=== PATIENT | female | born 1950 | race Caucasian/White ===

== ENCOUNTER → 2018-07-12 | Outpatient (CLI) | payer MEDICARE ==
--- NOTE | 2018-07-12 14:48 | US ---
EXAMINATION TYPE: US kidneys/renal and bladder DATE OF EXAM: 07/12/2018 COMPARISON: CT abdomen and pelvis 2011. CLINICAL HISTORY: R10.10 Upper Abd Pain. EXAM MEASUREMENTS: Right Kidney: 10.7 x 3.9 x 4.6 cm Left Kidney: 9.5 x 4.7 x 4.3 cm Post Void Residual Volume: no evident post void residual Right Kidney: echogenic foci noted, ?shadowing, possible nonobstructing stone measuring 0.4 x 0.3 x 0 .4cm Left Kidney: No hydronephrosis or masses seen Bladder: wnl There is no evidence for hydronephrosis at this point in time. No nephrolithiasis is seen. No bhavna s are identified. The urinary bladder is anechoic. Bilateral ureteral jets are not seen. IMPRESSION: Cannot exclude new 4 mm nonobstructing calculus mid pole level right kidney. No hydronephrosis is not ed bilaterally.
== END | disposition home or self-care (01) ==
LOC: RADUSWWP 13:58
PROVIDERS: ATTEND Family Medicine
DX: R10.10 Upper abdominal pain, unspecified (principal)
CPT/HCPCS: 76770

== ENCOUNTER → 2018-09-19 | Outpatient (CLI) | payer MEDICARE ==
--- NOTE | 2018-09-19 15:36 | CT ---
EXAMINATION TYPE: CT brain wo con DATE OF EXAM: 09/19/2018 HISTORY: dizziness CT DLP: 1072.3 mGycm. Automated Exposure Control for Dose Reduction was Utilized. TECHNIQUE: CT scan of the head is performed without contrast. COMPARISON: None. FINDINGS: There is no acute intracranial hemorrhage or midline shift identified. There is diffuse v entricular and sulcal prominence consistent with diffuse age-related cerebral atrophy. Hoff-white mat ter differentiation is fairly well-maintained. The globes are intact and the surgically treated para nasal sinuses are clear. Vascular consultation distal internal carotid arteries bilaterally is inci dentally seen. Visualized mastoid air cells show no suspicious opacification. IMPRESSION: No acute intracranial hemorrhage or midline shift. There is mild diffuse age-related ce rebral atrophy noted.
== END | disposition home or self-care (01) ==
LOC: RADCTMAIN 15:00
PROVIDERS: ATTEND Family Medicine
DX: G31.1 Senile degeneration of brain, not elsewhere classified (principal)
CPT/HCPCS: 70450

== ENCOUNTER 2019-06-09 14:18 | Observation (INO) | payer MEDICARE ==
[2019-06-09] MEDS ORDERED: NITROGLYCERIN OINT 1 INCH/GM PACKET TOPICAL STA (14:52)
[2019-06-09 15:12] LABS: Basophils # (A) 0.1 k/uL (0-0.2); Basophils % (A) 1 %; Eosinophils # (A) 0.2 k/uL (0-0.7); Eosinophils % (A) 2 %; HCT 41.7 % (34.0-46.0); HGB 14.3 gm/dL (11.4-16.0); Lymphocytes # (A) 1.9 k/uL (1.0-4.8); Lymphocytes % (A) 20 %; MCH 32.8 pg (25.0-35.0); MCHC 34.2 g/dL (31.0-37.0); MCV 95.7 fL (80.0-100.0); Mean Platelet Volume 7.1; Monocytes # (A) 0.8 k/uL (0-1.0); Monocytes % (A) 8 %; Neutrophils # (A) 6.2 k/uL (1.3-7.7); Neutrophils % (A) 65 %; Platelet Count 227 k/uL (150-450); RBC 4.35 m/uL (3.80-5.40); RDW 12.9 % (11.5-15.5); WBC 9.6 k/uL (3.8-10.6)
--- NOTE | 2019-06-09 15:19 | ED ---
General Adult HPI - General Chief complaint: Chest Pain Stated complaint: CHEST PAIN Time Seen by Provider: 06/09/19 14:25 Source: patient, EMS, RN notes reviewed Mode of arrival: EMS Limitations: no limitations - History of Present Illness Initial comments: This is a 68-year-old female presents emergency department stating that she's had states she's had chest pain which started about noon. Patient states she took 2 nitroglycerin it only helped a little. Patient states he took aspirin and then it got considerably worse she became short of breath lightheaded to the point she thought she might pass out and became very diaphoretic. EMS arrived they gave her more aspirin and in route all of her symptoms subsided. Patient states she had a stress test about a week ago and as far she knows it was okay. Patient denies any recent fever chills or cough. Patient denies any abdominal pain. Patient denies nausea vomiting. He denies any leg swelling or calf tenderness. Patient currently is asymptomatic. - Related Data Home Medications Medication Instructions Recorded Confirmed Atorvastatin [Lipitor] 20 mg PO HS 05/17/14 06/09/19 Omeprazole [PriLOSEC] 20 mg PO BID 05/17/14 06/09/19 Oxybutynin Chloride [Ditropan XL] 10 mg PO HS 05/17/14 06/09/19 Atenolol 25 mg PO HS 01/27/16 06/09/19 Isosorbide Mononitrate [Isosorbide 30 mg PO QA 01/27/16 06/09/19 Mononitrate ER] Ranitidine HCl [Zantac] 300 mg PO HS 01/27/16 06/09/19 Aspirin 81 mg PO DAILY 10/20/16 06/09/19 Gabapentin 600 mg PO HS 06/09/19 06/09/19 Losartan-Hctz 50-12.5 mg [Hyzaar 1 tab PO DAILY 06/09/19 06/09/19 50-12.5] diphenhydrAMINE HCL [Benadryl] 75 mg PO HS 06/09/19 06/09/19 Allergies Allergy/AdvReac Type Severity Reaction Status Date / Time Iodinated Contrast- Oral and Allergy Anaphylaxis Verified 06/09/19 15:13 IV Dye [Iodinated Contrast Media - IV Dye] tramadol HCl [From Ultram] Allergy Itching Verified 06/09/19 15:13 Review of Systems ROS Statement: Those systems with pertinent positive or pertinent negative responses have been documented in the HPI. ROS Other: All systems not noted in ROS Statement are negative. Past Medical History Past Medical History: Asthma, CVA/TIA, GERD/Reflux, Hyperlipidemia, Hypertension, Mitral Valve Prolapse (MVP) Additional Past Medical History / Comment(s): states "feels like has spasm when swallowing-does not happen freq"and harsh barking non-productive cough at night,Steroids Aug/Sep 2016,rash-yeast infection abdomen,Hx TIS-no residual,heart murmur; IBS w/some periods of "passing blood",degenerative disc disease,spurs,arthritis to back. History of Any Multi-Drug Resistant Organisms: None Reported Past Surgical History: Adenoidectomy, Appendectomy, Heart Catheterization, Hysterectomy, Tonsillectomy Additional Past Surgical History / Comment(s): cervical fusion C4-C5 with screws and pins in place, bilateral blepharoplasty (eye lid sx); left breast biopsies last one in 1994 Past Anesthesia/Blood Transfusion Reactions: Family History of Problems w/ Anesthesia, Motion Sickness Additional Past Anesthesia/Blood Transfusion Reaction / Comment(s): "wake up slowly from anesthsia",dtr has hard time waking up from anesthesia.No hx blood transfusion. Past Psychological History: No Psychological Hx Reported Smoking Status: Current some day smoker Past Alcohol Use History: None Reported Past Drug Use History: None Reported - Past Family History Mother Family Medical History: No Reported History Additional Family Medical History / Comment(s): at age 42 Father Additional Family Medical History / Comment(s): "bad heart valve" General Exam - General Exam Comments Initial Comments: GENERAL: Patient is well-developed and well-nourished. Patient is nontoxic and well- hydrated and is in no acute distress. ENT: Neck is soft and supple. No significant lymphadenopathy is noted. Oropharynx is clear. Moist mucous membranes. Neck has full range of motion without eliciting any pain. EYES: The sclera were anicteric and conjunctiva were pink and moist. Extraocular movements were intact and pupils were equal round and reactive to light. Eyelids were unremarkable. PULMONARY: Unlabored respirations. Good breath sounds bilaterally. No audible rales rhonchi or wheezing was noted. CARDIOVASCULAR: There is a regular rate and rhythm without any murmurs gallops or rubs. ABDOMEN: Soft and nontender with normal bowel sounds. No palpable organomegaly was noted. There is no palpable pulsatile mass. SKIN: Skin is clear with no lesions or rashes and otherwise unremarkable. NEUROLOGIC: Patient is alert and oriented x3. Cranial nerves II through XII are grossly intact. Motor and sensory are also intact. Normal speech, volume and content. Symmetrical smile. MUSCULOSKELETAL: Normal extremities with adequate strength and full range of motion. LYMPHATICS: No significant lymphadenopathy is noted PSYCHIATRIC: Normal psychiatric evaluation. Limitations: no limitations Course Vital Signs 06/09/19 06/09/19 14:24 15:35 Temperature 97.6 F Pulse Rate 66 57 L Respiratory 18 18 Rate Blood Pressure 159/73 147/97 O2 Sat by Pulse 97 97 Oximetry Medical Decision Making - Medical Decision Making EKG shows normal sinus rhythm at 60 bpm TX interval is 122 QRS is 82 QT interval 412 QTC is 412. Patient's EKG shows no ST segment elevation or depression or T wave abnormalities are noted. Chest x-ray shows no acute abnormality. Patient has been chest pain free throughout her duration. I spoke with Dr. Saba he agreed to admit the patient admitted the patient I wrote admitting orders. I continued heparin and aspirin and Nitropaste on the floor. - Lab Data Result diagrams: 06/09/19 15:02 06/09/19 15:02 Lab Results 06/09/19 06/09/19 06/09/19 Range/Units 15:02 15:02 15:02 WBC 9.6 (3.8-10.6) k/uL RBC 4.35 (3.80-5.40) m/uL Hgb 14.3 (11.4-16.0) gm/dL Hct 41.7 (34.0-46.0) % MCV 95.7 (80.0-100.0) fL MCH 32.8 (25.0-35.0) pg MCHC 34.2 (31.0-37.0) g/dL RDW 12.9 (11.5-15.5) % Plt Count 227 (150-450) k/uL Neutrophils % 65 % Lymphocytes % 20 % Monocytes % 8 % Eosinophils % 2 % Basophils % 1 % Neutrophils # 6.2 (1.3-7.7) k/uL Lymphocytes # 1.9 (1.0-4.8) k/uL Monocytes # 0.8 (0-1.0) k/uL Eosinophils # 0.2 (0-0.7) k/uL Basophils # 0.1 (0-0.2) k/uL PT 9.8 (9.0-12.0) sec INR 0.9 (<1.2) APTT 23.5 (22.0-30.0) sec Sodium 138 (137-145) mmol/L Potassium 3.8 (3.5-5.1) mmol/L Chloride 102 (98-107) mmol/L Carbon Dioxide 29 (22-30) mmol/L Anion Gap 7 mmol/L BUN 16 (7-17) mg/dL Creatinine 0.66 (0.52-1.04) mg/dL Est GFR (CKD-EPI)AfAm >90 (>60 ml/min/1.73 sqM) Est GFR (CKD-EPI)NonAf 90 (>60 ml/min/1.73 sqM) Glucose 100 H (74-99) mg/dL Calcium 9.2 (8.4-10.2) mg/dL Magnesium 1.9 (1.6-2.3) mg/dL Total Bilirubin 0.5 (0.2-1.3) mg/dL AST 22 (14-36) U/L ALT 29 (9-52) U/L Alkaline Phosphatase 57 (38-126) U/L Troponin I (0.000-0.034) ng/mL Total Protein 6.2 L (6.3-8.2) g/dL Albumin 3.9 (3.5-5.0) g/dL 06/09/19 Range/Units 15:02 WBC (3.8-10.6) k/uL RBC (3.80-5.40) m/uL Hgb (11.4-16.0) gm/dL Hct (34.0-46.0) % MCV (80.0-100.0) fL MCH (25.0-35.0) pg MCHC (31.0-37.0) g/dL RDW (11.5-15.5) % Plt Count (150-450) k/uL Neutrophils % % Lymphocytes % % Monocytes % % Eosinophils % % Basophils % % Neutrophils # (1.3-7.7) k/uL Lymphocytes # (1.0-4.8) k/uL Monocytes # (0-1.0) k/uL Eosinophils # (0-0.7) k/uL Basophils # (0-0.2) k/uL PT (9.0-12.0) sec INR (<1.2) APTT (22.0-30.0) sec Sodium (137-145) mmol/L Potassium (3.5-5.1) mmol/L Chloride (98-107) mmol/L Carbon Dioxide (22-30) mmol/L Anion Gap mmol/L BUN (7-17) mg/dL Creatinine (0.52-1.04) mg/dL Est GFR (CKD-EPI)AfAm (>60 ml/min/1.73 sqM) Est GFR (CKD-EPI)NonAf (>60 ml/min/1.73 sqM) Glucose (74-99) mg/dL Calcium (8.4-10.2) mg/dL Magnesium (1.6-2.3) mg/dL Total Bilirubin (0.2-1.3) mg/dL AST (14-36) U/L ALT (9-52) U/L Alkaline Phosphatase (38-126) U/L Troponin I <0.012 (0.000-0.034) ng/mL Total Protein (6.3-8.2) g/dL Albumin (3.5-5.0) g/dL Disposition Clinical Impression: Unstable angina pectoris Disposition: ADMITTED IP TO THIS HOSP Referrals: Lashell Price MD [Primary Care Provider] - 1-2 days Time of Disposition: 16:23
[2019-06-09 15:21] LABS: ALT 29 U/L (9-52); AST 22 U/L (14-36); African American GFR (CKD) >90 (>60 ml/min/1.73 sqM); Albumin 3.9 g/dL (3.5-5.0); Alkaline Phosphatase 57 U/L (38-126); Anion Gap 7 mmol/L; Blood Urea Nitrogen 16 mg/dL (7-17); Calcium 9.2 mg/dL (8.4-10.2); Carbon Dioxide 29 mmol/L (22-30); Chloride 102 mmol/L (98-107); Glucose 100 mg/dL (74-99); Magnesium 1.9 mg/dL (1.6-2.3); Non-African American GFR(CKD) 90 (>60 ml/min/1.73 sqM); Potassium 3.8 mmol/L (3.5-5.1); Sodium 138 mmol/L (137-145); Total Bilirubin 0.5 mg/dL (0.2-1.3); Total Protein 6.2 g/dL (6.3-8.2)
--- NOTE | 2019-06-09 15:30 | XR ---
EXAMINATION TYPE: XR chest 2V DATE OF EXAM: 06/09/2019 COMPARISON: 09/01/2015 HISTORY: Chest pain TECHNIQUE: Frontal and lateral views of the chest are obtained. FINDINGS: There is no focal air space opacity, pleural effusion, or pneumothorax seen. Eventration o f the hemidiaphragms are seen. Flattening of the diaphragms on the lateral view suggests underlying COPD. The cardiac silhouette size is within normal limits. Prominent epicardial fat pad is unchange d from the prior at the right cardiophrenic border. The osseous structures are intact. Minimal degene rative changes of the thoracic spine are noted. Surgical changes of the cervical spine are noted. IMPRESSION: Chronic changes with no acute cardiopulmonary process.
[2019-06-09 15:32] LABS: INR 0.9 (<1.2); Partial Thromboplastin Time 23.5 sec (22.0-30.0); Prothrombin Time 9.8 sec (9.0-12.0)
[2019-06-09] MEDS ORDERED: HEPARIN SODIUM,PORCINE 5,000 UNIT/ML 1 ML VIAL IV ONE (16:22)
[2019-06-09] MEDS ORDERED: NITROGLYCERIN SL TABS 0.4 MG TAB SUBLINGUAL PRN (16:24)
[2019-06-09] MEDS ORDERED: HEPARIN SOD,PORK IN 0.45% NACL 25,000 UNIT in 0.45% NACL 1 250ML.BAG IV SCH (16:30)
[2019-06-09] MEDS: NITROGLYCERIN OINT 1 INCH/GM PACKET TOPICAL SCH ×2 (20:10→23:40)
[2019-06-09] MEDS ORDERED: TEMAZEPAM 15 MG CAP PO PRN (20:30)
[2019-06-09] MEDS ORDERED: ALPRAZolam 0.25 MG TAB PO PRN (20:30)
[2019-06-09] MEDS ORDERED: diphenhydrAMINE 25 MG CAP PO SCH (21:00)
[2019-06-09] MEDS ORDERED: FAMOTIDINE 20 MG TAB PO SCH (21:00)
[2019-06-09] MEDS ORDERED: ATENOLOL 25 MG TAB PO SCH (21:00)
[2019-06-09] MEDS ORDERED: OXYBUTYNIN 10 MG TAB.ER.24 PO SCH (21:00)
[2019-06-09] MEDS ORDERED: NON FORMULARY DRUG (Omeprazole [Prilosec] 20 MG) PO SCH (21:00)
[2019-06-09] MEDS ORDERED: ATORVASTATIN 20 MG TAB PO SCH (21:00)
[2019-06-09] MEDS ORDERED: GABAPENTIN 300 MG CAP PO SCH (21:00)
[2019-06-09] MEDS ORDERED: HEPARIN SODIUM,PORCINE 5,000 UNIT/ML 1 ML VIAL IV PRN (22:15)
--- NOTE | 2019-06-10 01:49 | HP ---
HISTORY AND PHYSICAL DATE OF SERVICE: 06/09/2019 CHIEF COMPLAINT: Chest pain. HISTORY OF PRESENT ILLNESS: This 68-year-old woman with a past medical history of multiple medical problems being followed by Dr. Lashell Price in the outpatient setting had past medical history of asthma, CVA, TIA, GERD, hypertension, hyperlipidemia, mitral prolapse. The patient also following Cardiology on a regular basis. Currently the patient is complaining of chest discomfort in the anterior part of the chest and the patient took 2 nitros, which only helped slightly and the pain is radiating to the right neck as similar to the patient's previous anginal attack. Apparently subsequently patient had presyncopal episodes and feeling dizzy and the patient was feeling weak and diaphoretic and patient came to [facility] emergency room via EMS and patient admitted to the hospital for further evaluation and treatment. There is no history of fever, rigors or chills. No history of headache, loss of consciousness or seizures. EKG showed normal sinus rhythm, heart rate 60 and no acute changes. PAST MEDICAL HISTORY: History of asthma, history of GERD, hypertension, hyperlipidemia, mitral valve prolapse. MEDICATIONS: Prior to admission include home medications are: 1. Benadryl 75 mg p.o. q.h.s. 2. Ditropan XL 10 mg q.h.s. 3. Gabapentin 600 mg q.h.s. 4. Zantac 300 mg q.h.s. 5. Prilosec 20 mg p.o. b.i.d. 6. advair 50/12.5 mg p.o. daily. 7. Isosorbide mononitrate 30 mg p.o. q.h.s. 8. Lipitor 20 mg q.h.s. 9. Metoprolol 25 mg q.h.s. 10.Aspirin 81 mg p.o. daily. ALLERGIES: IODINATED CONTRAST DYES and ULTRAM. FAMILY HISTORY: Family history unknown. SOCIAL HISTORY: History of smoking, continued ongoing. REVIEW OF SYSTEMS: ENT: No diminished hearing. No diminished vision. CARDIOVASCULAR as mentioned earlier. RESPIRATORY: As mentioned earlier. GI no nausea or vomiting. no dysuria. CENTRAL NERVOUS SYSTEM: No numbness or weakness. ALLERGY/IMMUNOLOGY: No asthma or hayfever. MUSCULOSKELETAL: As mentioned earlier. HEMATOLOGY/ONCOLOGY: No history of anemia. ENDOCRINE: No history of diabetes or hypothyroid. CONSTITUTIONAL: As mentioned earlier. DERMATOLOGY: Negative. RHEUMATOLOGY: Negative. PSYCHIATRY: As mentioned earlier. PHYSICAL EXAMINATION: Alert and oriented times three. Pulse 57, blood pressure 147/96, respiration 18, temperature 97.6, pulse ox 97% on room air. HEENT: Conjunctivae normal. Oral mucosa moist. NECK is no jugular venous distention. No carotid bruit. No lymph node enlargement. CARDIOVASCULAR: S1, S2 muffled. No S3, no S4. RESPIRATORY: Breath sounds diminished in the bases. No rhonchi. No crackles. ABDOMEN: Soft, nontender. No mass palpable. LEGS: No edema. No swelling. NERVOUS SYSTEM: Higher functions as mentioned earlier. Moves all four limbs. No focal deficits. LYMPHATICS: No lymph nodes palpable in the neck, axillae or groin. SKIN: No ulcers. No rashes. No bleeding. JOINTS: No active deforming arthropathy. LABS: At this time shows CBC within normal limits. Glucose 100 and total protein 6. ASSESSMENT: 1. Chest pain possible unstable angina. 2. Dizziness. 3. Presyncope, possibly orthostatic hypotension. 4. History of asthma. 5. History cerebrovascular accident/transient ischemic attack. 6. Gastroesophageal reflux disease. 7. Hypertension. 8. Hyperlipidemia. 9. History of mitral valve prolapse. 10.History of irritable bowel syndrome. 11.History of cardiac catheterization. 12.History of cervical fusion, degenerative joint disease. 13.History of nicotine dependence, continued ongoing. 14.Obesity body mass of 33.5. RECOMMENDATIONS AND DISCUSSION: This 68-year-old woman with multiple complex medical issues, we will monitor the patient closely, continue the current medications, management and rule out myocardial infarction. Unstable angina protocol. Resume the home medications. Follow closely with cardiology. We will check orthostatic vitals. Guarded prognosis because of multiple complex medical issues. Further recommendations to follow. A copy of dictation being forwarded to Dr. Lashell Price who is the primary physician. MMMONIQUEL / DINORAHN: [id number] / SNEHA
[2019-06-10 06:31] LABS: Basophils % (A) 1 %; Eosinophils # (A) 0.3 k/uL (0-0.7); Eosinophils % (A) 4 %; HCT 37.7 % (34.0-46.0); HGB 12.9 gm/dL (11.4-16.0); Lymphocytes # (A) 2.3 k/uL (1.0-4.8); Lymphocytes % (A) 33 %; MCH 32.9 pg (25.0-35.0); MCHC 34.2 g/dL (31.0-37.0); MCV 96.1 fL (80.0-100.0); Mean Platelet Volume 8.2; Monocytes # (A) 0.6 k/uL (0-1.0); Monocytes % (A) 9 %; Neutrophils # (A) 3.6 k/uL (1.3-7.7); Neutrophils % (A) 51 %; Platelet Count 251 k/uL (150-450); RBC 3.93 m/uL (3.80-5.40); RDW 14.4 % (11.5-15.5); WBC 7.1 k/uL (3.8-10.6)
[2019-06-10 06:49] LABS: African American GFR (CKD) >90 (>60 ml/min/1.73 sqM); Anion Gap 6 mmol/L; Blood Urea Nitrogen 14 mg/dL (7-17); Calcium 8.9 mg/dL (8.4-10.2); Carbon Dioxide 27 mmol/L (22-30); Chloride 108 mmol/L (98-107); Cholesterol 148 mg/dL (<200); Glucose 87 mg/dL (74-99); HDL Cholesterol 37 mg/dL (40-60); LDL Cholesterol,Calculated 70 mg/dL (0-99); Non-African American GFR(CKD) 89 (>60 ml/min/1.73 sqM); Potassium 3.8 mmol/L (3.5-5.1); Sodium 141 mmol/L (137-145); Triglycerides 206 mg/dL (<150)
[2019-06-10] MEDS: NITROGLYCERIN OINT 1 INCH/GM PACKET TOPICAL SCH (06:52)
[2019-06-10] MEDS ORDERED: PANTOPRAZOLE 40 MG TABLET PO SCH (07:30)
[2019-06-10 08:14] VITALS: BP 136/79; PULSE 57; RESP 16; TEMP 98.1
[2019-06-10] MEDS ORDERED: OXYBUTYNIN 10 MG TAB.ER.24 PO SCH (09:00)
[2019-06-10] MEDS ORDERED: LOSARTAN-HCTZ 50-12.5 MG 1 EACH TAB PO SCH (09:00)
[2019-06-10] MEDS ORDERED: ASPIRIN 325 MG TAB PO SCH (09:00)
--- NOTE | 2019-06-10 09:20 | CONS ---
CONSULTATION This is a 68-year-old lady with a history of hypertension and smoking and hyperlipidemia who sees Dr. Mooney in the outpatient setting. May 23, she had a Lexiscan stress test which I reviewed today and it was completely normal. There is no ischemia. Ejection fraction is more than 60%. She came into the hospital with an episode of what she described as a sharp pain in her chest, started about noon on and off. Quality of the pain was atypical. She took 2 sublingual nitroglycerin, did not really have much relief. Then she became dizzy, lightheaded and had a sensation of passing out and came into the hospital. Her 3 sets of troponins are normal. She is resting comfortably. No further chest pain. EKG is unremarkable. It appears her pain was atypical and after sublingual nitroglycerin, she felt lightheaded, probably secondary to the medication. She is virtually asymptomatic at this time and her stress test 2 weeks ago was normal. PAST MEDICAL HISTORY: 1. Hypertension. 2. Hyperlipidemia. 3. Gastroesophageal reflux disease. 4. Recent negative Lexiscan stress test. ALLERGIES: SHE IS ALLERGIC TO IODINE AND TRAMADOL. MEDICATIONS: Include aspirin 81 mg daily, losartan, diphenhydramine, ranitidine, Imdur, omeprazole and Lipitor, atenolol 25 mg daily. PHYSICAL EXAMINATION: Blood pressure is 120/70, pulse rate is 60 per minute, regular. HEENT unremarkable. Fundus was not examined by me. Neck is supple. No JVD. I do not hear a carotid bruit. There is no thyromegaly. Heart exam reveals S1, S2 heard normally without a rub, murmur or gallop. Lungs are clear. Abdomen is soft, nontender. Lower extremities reveal normal pulses. No edema. Central nervous system is normal. EKG revealed sinus rhythm, no acute changes. IMPRESSION: 1. Atypical chest pain with a normal stress test 2 weeks ago, Lexiscan stress test in the office. 2. Hypertension. 3. Hyperlipidemia. 4. History of smoking. RECOMMENDATION: This patient can be discharged home. Her pain is atypical. Recent stress test is negative. D-dimer is unremarkable. I have counselled her regarding the need to quit smoking. She should not be taking isosorbide mononitrate either. That can be discontinued and she can be discharged and see Dr. Mooney in the office. MMODL / IJN: [id number] /
--- NOTE | 2019-06-11 09:08 | DS ---
DISCHARGE SUMMARY DATE OF SERVICE: 06/10/2019. FINAL DIAGNOSES: 1. Chest pain, myocardial infarction ruled out. 2. Recent negative stress test. 3. Dizziness and presyncope, possible orthostatic hypotension. 4. History of asthma. 5. History of cerebrovascular accident, transient ischemic attack. 6. Gastroesophageal reflux disease. 7. Hypertension. 8. Hyperlipidemia. 9. History of mitral valve prolapse. 10.History of irritable bowel syndrome. 11.History of cardiac catheterization. 12.History of cervical fusion, degenerative joint disease. 13.History of nicotine dependence, continued ongoing. 14.Obesity with body mass index 33.5. DISCHARGE DISPOSITION: The patient will be discharged in stable condition with guarded prognosis. HISTORY OF PRESENT ILLNESS: This 68-year-old woman with past medical history of multiple medical problems being followed by Dr. Lashell Price as well as Dr. Mooney in the outpatient setting, presented with chest pain. Myocardial infarction ruled out. Cardiology saw the patient. Cleared the patient for discharge. On exam, vitals signs are stable. Cardiovascular: S1, S2 muffled. Abdomen soft. Nervous System: No focal deficits. Please note, patient recently had a stress test as an outpatient with Dr. Mooney. The blood pressure was improved at this time. DISCHARGE ADVICE AND MEDICATIONS: 1. Diet is cardiac diet. 2. Activity limited until followup. 3. Follow up with Dr. Lashell Price in 2-3 days. 4. Follow up with Cardiology as recommended. DISCHARGE MEDICATIONS: 1. Ecotrin 81 mg p.o. daily. 2. Atenolol 25 mg q.h.s. 3. Benadryl 75 mg p.o. q.h.s. 4. Ditropan XL 10 mg p.o. daily. 5. Gabapentin 600 mg q.h.s. 6. Hyzaar 50/12.5 mg p.o. daily. 7. Imdur 30 mg q.a.m. 8. Lipitor 20 mg q.h.s. 9. Prilosec 20 mg p.o. b.i.d. 10.Nitrostat 0.4 mg sublingual p.r.n. Once again, the patient will be discharged in stable condition with guarded prognosis. MMODL / IJN: [id number] /
== END 2019-06-10 11:50 | disposition home or self-care (01) ==
LOC: EC 14:18 → 1SOBS 16:24
PROVIDERS: ADMIT Hospitalist; ATTEND Hospitalist
DX: R07.89 Other chest pain (principal); R42 Dizziness and giddiness; R55 Syncope and collapse; R53.1 Weakness; R61 Generalized hyperhidrosis; J45.909 Unspecified asthma, uncomplicated; K21.9 Gastro-esophageal reflux disease without esophagitis; I10 Essential (primary) hypertension; E78.5 Hyperlipidemia, unspecified; I34.1 Nonrheumatic mitral (valve) prolapse; E66.9 Obesity, unspecified; Z68.33 Body mass index [BMI] 33.0-33.9, adult; K58.9 Irritable bowel syndrome, unspecified; M46.90 Unspecified inflammatory spondylopathy, site unspecified; Z98.1 Arthrodesis status; Z86.73 Personal history of transient ischemic attack (TIA), and cerebral infarction without residual deficits; Z87.891 Personal history of nicotine dependence; Z79.899 Other long term (current) drug therapy; Z79.82 Long term (current) use of aspirin; Z88.5 Allergy status to narcotic agent; Z91.041 Radiographic dye allergy status
CPT/HCPCS: 96366 ×3; 96376; 96365; 99285; 36415; 93005; 85379; 80061; 80053; 80048; 83735; 84484 ×2; 85025 ×2; 85610; 85730 ×2; 71046; G0378 ×2; J1644 ×2

== ENCOUNTER → 2019-07-12 | Outpatient (CLI) | payer MEDICARE ==
[2019-07-12 12:55] LABS: HCT 45.6 % (34.0-46.0); MCH 32.1 pg (25.0-35.0); MCV 97.3 fL (80.0-100.0); Mean Platelet Volume 6.5; Platelet Count 321 k/uL (150-450); RBC 4.69 m/uL (3.80-5.40); RDW 12.5 % (11.5-15.5); WBC 9.9 k/uL (3.8-10.6)
[2019-07-12 13:07] LABS: Potassium 3.7 mmol/L (3.5-5.1)
== END | disposition home or self-care (01) ==
LOC: LABPAT 12:22
PROVIDERS: ATTEND Internal Medicine Cardiovascular Disease
DX: Z01.812 Encounter for preprocedural laboratory examination (principal); I20.8 Other forms of angina pectoris
CPT/HCPCS: 80051; 82565; 84520; 85027

== ENCOUNTER → 2019-07-14 | Day surgery (SDC) | payer MEDICARE ==
[2019-07-13 12:16] VITALS: BMI 32.5
[~2019-07-14] MED LIST: ALPRAZolam 0.25 MG TAB ONE; IOPAMIDOL-370 125ML BTL INJ ONE; LIDOCAINE 1% INJ 10MG/ML (20 ML MDV) ONE; LIDOCAINE 1% INJ 10MG/ML (20 ML MDV) SQ ONE; MIDAZOLAM 2 MG/2 ML VIAL IV ONE; MIDAZOLAM 2 MG/2 ML VIAL IVP ONE; RX INFO: IV CONTRAST WAS GIVEN 1 EACH MISC MISCELLANE PRN; SODIUM CHLORIDE 0.9% 1,000 ML IV ONE; SODIUM CHLORIDE 0.9% 1,000 ML IV SCH; fentaNYL (PF) 50 MCG/ML 2 ML AMP IV ONE; fentaNYL (PF) 50 MCG/ML 2 ML AMP ONE
[2019-07-14 07:40] VITALS: RESP 16
--- NOTE | 2019-07-14 10:20 | CC ---
CARDIAC CATHETERIZATION REPORT INDICATION: Unstable angina. PROCEDURE NOTE: After obtaining informed consent, left heart catheterization and coronary angiogram were performed via the right femoral artery using standard Trent catheters. Patient tolerated the procedure well without any obvious immediate complications. A femoral angiogram was performed and Angio-Seal will be deployed for hemostasis patient received moderate conscious sedation. Total sedation time was 16 minutes. FINDINGS: HEMODYNAMICS: Left ventricular end-diastolic pressure is 12-14 mm. There is no significant gradient across the aortic valve. LEFT VENTRICULOGRAM: Left ventriculogram is not performed. ANGIOGRAPHIC DATA: LEFT MAIN CORONARY ARTERY: Left main coronary artery appears calcified but is free of significant stenosis. Divides into left anterior descending coronary artery and circumflex coronary artery. Circumflex coronary artery and its branches are free of significant stenosis. LAD shows a 40%-50% stenosis in the mid LAD region. Right coronary artery is a large dominant vessel that shows a 40% stenosis in its midportion and both the LAD and the right coronary artery appears calcified. 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 PLAN: I reviewed angiographic data with the patient and told her that her management is going to be in the form of continued medical therapy. The patient is currently on aspirin, atenolol, Lipitor, losartan, and Imdur. I will double the dose of Imdur. She will follow up with me in a week's time. MMODL / IJN: [id number] /
[2019-07-14 14:42] VITALS: BP 113/56; PULSE 66; TEMP 98
== END ==
LOC: CATHCVL 07:03
PROVIDERS: ATTEND Internal Medicine Cardiovascular Disease
DX: I25.110 Atherosclerotic heart disease of native coronary artery with unstable angina pectoris (principal); I10 Essential (primary) hypertension; E78.2 Mixed hyperlipidemia; F17.290 Nicotine dependence, other tobacco product, uncomplicated; Z79.899 Other long term (current) drug therapy; Z91.048 Other nonmedicinal substance allergy status; Z88.5 Allergy status to narcotic agent; Z86.79 Personal history of other diseases of the circulatory system; Z98.890 Other specified postprocedural states; Z82.49 Family history of ischemic heart disease and other diseases of the circulatory system; I08.0 Rheumatic disorders of both mitral and aortic valves; Z91.041 Radiographic dye allergy status
CPT/HCPCS: 93458; C1760; C1894; C1769; J2250; J2001; J3010; Q9967

== ENCOUNTER 2019-07-15 14:42 | Emergency (ER) | payer MEDICARE ==
[2019-07-15 14:48] VITALS: RESP 18
[2019-07-15] MEDS ORDERED: NITROGLYCERIN OINT 1 INCH/GM PACKET TOPICAL STA (15:04)
[2019-07-15] MEDS ORDERED: ASPIRIN 81 MG PO STA (15:04)
--- NOTE | 2019-07-15 15:06 | ED ---
General Adult HPI - General Chief complaint: Chest Pain Stated complaint: Chest pain Time Seen by Provider: 07/15/19 14:56 Source: patient, RN notes reviewed Mode of arrival: wheelchair Limitations: no limitations - History of Present Illness Initial comments: Patient is a pleasant 68-year-old female presenting to the emergency Department with complaints of chest discomfort. Patient does have similar symptoms around a year ago that were improved with medications. Over the past month or 2 patient has had recurrent symptoms. Patient had worsening symptoms again several days ago and did have heart catheterization done just yesterday. Patient states this morning she has now had 4 episodes of chest discomfort. Discomfort is described as pressure. Symptoms do resolve with nitroglycerin. No associated dyspnea, nausea, or diaphoresis. Patient is currently symptom- free. Episodes are lasting up to 10 minutes. - Related Data Home Medications Medication Instructions Recorded Confirmed Atorvastatin [Lipitor] 20 mg PO DAILY 05/17/14 07/15/19 Omeprazole [PriLOSEC] 20 mg PO BID 05/17/14 07/15/19 Oxybutynin Chloride [Ditropan XL] 10 mg PO DAILY 05/17/14 07/15/19 Atenolol 25 mg PO DAILY 01/27/16 07/15/19 Isosorbide Mononitrate [Isosorbide 30 mg PO QAM 01/27/16 07/15/19 Mononitrate ER] Aspirin 81 mg PO DAILY 10/20/16 07/15/19 Gabapentin 600 mg PO DAILY 06/09/19 07/15/19 Losartan-Hctz 50-12.5 mg [Hyzaar 1 tab PO DAILY 06/09/19 07/15/19 50-12.5] diphenhydrAMINE HCL [Benadryl] 75 mg PO DAILY 06/09/19 07/15/19 Previous Rx's Medication Instructions Recorded Nitroglycerin Sl Tabs [Nitrostat] 0.4 mg SUBLINGUAL Q5M PRN #20 tab 06/10/19 Allergies Allergy/AdvReac Type Severity Reaction Status Date / Time Iodinated Contrast Media Allergy Anaphylaxis Verified 07/15/19 15:21 [Iodinated Contrast Media - IV Dye] tramadol HCl [From Ultram] Allergy Itching Verified 07/15/19 15:21 Review of Systems ROS Statement: Those systems with pertinent positive or pertinent negative responses have been documented in the HPI. ROS Other: All systems not noted in ROS Statement are negative. Constitutional: Denies: fever Eyes: Denies: eye pain ENT: Denies: ear pain Respiratory: Denies: cough, dyspnea Cardiovascular: Reports: chest pain Endocrine: Denies: fatigue Gastrointestinal: Denies: abdominal pain Genitourinary: Denies: dysuria Musculoskeletal: Denies: back pain Skin: Denies: rash Neurological: Denies: weakness Past Medical History Past Medical History: Asthma, Chest Pain / Angina, CVA/TIA, GERD/Reflux, Hyperlipidemia, Hypertension, Mitral Valve Prolapse (MVP), Osteoarthritis (OA) Additional Past Medical History / Comment(s): intermittent harsh barking non- productive cough at night,TIA-no residual,heart murmur; IBS degenerative disc disease,spurs, recent chest pain History of Any Multi-Drug Resistant Organisms: None Reported Past Surgical History: Adenoidectomy, Appendectomy, Heart Catheterization, Hysterectomy, Tonsillectomy Additional Past Surgical History / Comment(s): cervical fusion C4-C5 with screws and pins in place, bilateral blepharoplasty (eye lid sx); left breast biopsies last one in 1994, cataracts removed Past Anesthesia/Blood Transfusion Reactions: Previous Problems w/ Anesthesia, Family History of Problems w/ Anesthesia, Motion Sickness Additional Past Anesthesia/Blood Transfusion Reaction / Comment(s): "wake up slowly from anesthesia",dt has hard time waking up from anesthesia.No hx blood transfusion. Past Psychological History: No Psychological Hx Reported Smoking Status: Former smoker Past Alcohol Use History: None Reported Past Drug Use History: None Reported - Past Family History Mother Family Medical History: No Reported History Additional Family Medical History / Comment(s): at age 42 Father Additional Family Medical History / Comment(s): "bad heart valve" General Exam Limitations: no limitations General appearance: alert, in no apparent distress Head exam: Present: normocephalic Eye exam: Present: normal appearance Neck exam: Present: normal inspection Respiratory exam: Present: normal lung sounds bilaterally Cardiovascular Exam: Present: regular rate, normal rhythm Expanded Peripheral pulses: 2+: Radial (R), Radial (L), Posterior Tibialis (R), Posterior Tibialis (L), Dorsalis Pedis (R), Dorsalis Pedis (L) GI/Abdominal exam: Present: soft. Absent: tenderness Extremities exam: Present: normal inspection. 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 FL 108. QRS 84. QT 428. QTC 423. Normal axis. Normal QRS. No acute ST change. Medical Decision Making - Medical Decision Making Case discussed in detail with Dr. Ramos who does recommend increasing Imdur from 30 up to 60 mg daily. Follow-up as scheduled. He states patient can be discharged. Patient reevaluated and symptom-free. Patient and family updated. - Lab Data Result diagrams: 07/15/19 15:25 07/15/19 15:25 Lab Results 07/15/19 07/15/19 07/15/19 Range/Units 15:25 15:25 15:25 WBC 13.2 H (3.8-10.6) k/uL RBC 4.75 (3.80-5.40) m/uL Hgb 14.9 (11.4-16.0) gm/dL Hct 45.9 (34.0-46.0) % MCV 96.7 (80.0-100.0) fL MCH 31.4 (25.0-35.0) pg MCHC 32.4 (31.0-37.0) g/dL RDW 12.8 (11.5-15.5) % Plt Count 307 (150-450) k/uL Neutrophils % 52 % Lymphocytes % 33 % Monocytes % 8 % Eosinophils % 1 % Basophils % 2 % Neutrophils # 6.9 (1.3-7.7) k/uL Lymphocytes # 4.3 (1.0-4.8) k/uL Monocytes # 1.1 H (0-1.0) k/uL Eosinophils # 0.2 (0-0.7) k/uL Basophils # 0.3 H (0-0.2) k/uL PT (9.0-12.0) sec INR (<1.2) APTT (22.0-30.0) sec Sodium 137 (137-145) mmol/L Potassium 3.8 (3.5-5.1) mmol/L Chloride 100 (98-107) mmol/L Carbon Dioxide 25 (22-30) mmol/L Anion Gap 12 mmol/L BUN 17 (7-17) mg/dL Creatinine 0.74 (0.52-1.04) mg/dL Est GFR (CKD-EPI)AfAm >90 (>60 ml/min/1.73 sqM) Est GFR (CKD-EPI)NonAf 83 (>60 ml/min/1.73 sqM) Glucose 85 (74-99) mg/dL Calcium 9.6 (8.4-10.2) mg/dL Magnesium 1.7 (1.6-2.3) mg/dL Total Bilirubin 0.5 (0.2-1.3) mg/dL AST 23 (14-36) U/L ALT 24 (9-52) U/L Alkaline Phosphatase 65 (38-126) U/L Troponin I (0.000-0.034) ng/mL NT-Pro-B Natriuret Pep 355 pg/mL Total Protein 6.8 (6.3-8.2) g/dL Albumin 4.2 (3.5-5.0) g/dL Lipase 41 (23-300) U/L 07/15/19 07/15/19 Range/Units 15:25 15:25 WBC (3.8-10.6) k/uL RBC (3.80-5.40) m/uL Hgb (11.4-16.0) gm/dL Hct (34.0-46.0) % MCV (80.0-100.0) fL MCH (25.0-35.0) pg MCHC (31.0-37.0) g/dL RDW (11.5-15.5) % Plt Count (150-450) k/uL Neutrophils % % Lymphocytes % % Monocytes % % Eosinophils % % Basophils % % Neutrophils # (1.3-7.7) k/uL Lymphocytes # (1.0-4.8) k/uL Monocytes # (0-1.0) k/uL Eosinophils # (0-0.7) k/uL Basophils # (0-0.2) k/uL PT 10.3 (9.0-12.0) sec INR 1.0 (<1.2) APTT 22.8 (22.0-30.0) sec Sodium (137-145) mmol/L Potassium (3.5-5.1) mmol/L Chloride (98-107) mmol/L Carbon Dioxide (22-30) mmol/L Anion Gap mmol/L BUN (7-17) mg/dL Creatinine (0.52-1.04) mg/dL Est GFR (CKD-EPI)AfAm (>60 ml/min/1.73 sqM) Est GFR (CKD-EPI)NonAf (>60 ml/min/1.73 sqM) Glucose (74-99) mg/dL Calcium (8.4-10.2) mg/dL Magnesium (1.6-2.3) mg/dL Total Bilirubin (0.2-1.3) mg/dL AST (14-36) U/L ALT (9-52) U/L Alkaline Phosphatase (38-126) U/L Troponin I <0.012 (0.000-0.034) ng/mL NT-Pro-B Natriuret Pep pg/mL Total Protein (6.3-8.2) g/dL Albumin (3.5-5.0) g/dL Lipase (23-300) U/L - Radiology Data Radiology results: report reviewed (CT angios chest shows no acute process), image reviewed (This x-ray shows no acute process) Disposition Clinical Impression: Chest pain Disposition: HOME SELF-CARE Condition: Stable Instructions (If sedation given, give patient instructions): Chest Pain (ED) Additional Instructions: Please follow-up with cardiology this week as planned. Please follow-up with primary care physician in the beginning of the week. Return for worsening or change in symptoms, or any other concerns. Increase Imdur dose now is 60 mg daily. Is patient prescribed a controlled substance at d/c from ED?: No Referrals: Lashell Price MD [Primary Care Provider] - 1-2 days Decision Time: 17:49
[2019-07-15 15:38] LABS: Basophils # (A) 0.3 k/uL (0-0.2); Basophils % (A) 2 %; Eosinophils # (A) 0.2 k/uL (0-0.7); Eosinophils % (A) 1 %; HCT 45.9 % (34.0-46.0); HGB 14.9 gm/dL (11.4-16.0); Lymphocytes # (A) 4.3 k/uL (1.0-4.8); Lymphocytes % (A) 33 %; MCH 31.4 pg (25.0-35.0); MCHC 32.4 g/dL (31.0-37.0); MCV 96.7 fL (80.0-100.0); Mean Platelet Volume 7.5; Monocytes # (A) 1.1 k/uL (0-1.0); Monocytes % (A) 8 %; Neutrophils # (A) 6.9 k/uL (1.3-7.7); Neutrophils % (A) 52 %; Platelet Count 307 k/uL (150-450); RBC 4.75 m/uL (3.80-5.40); RDW 12.8 % (11.5-15.5); WBC 13.2 k/uL (3.8-10.6)
[2019-07-15 15:47] LABS: ALT 24 U/L (9-52); AST 23 U/L (14-36); African American GFR (CKD) >90 (>60 ml/min/1.73 sqM); Albumin 4.2 g/dL (3.5-5.0); Alkaline Phosphatase 65 U/L (38-126); Anion Gap 12 mmol/L; Blood Urea Nitrogen 17 mg/dL (7-17); Calcium 9.6 mg/dL (8.4-10.2); Carbon Dioxide 25 mmol/L (22-30); Chloride 100 mmol/L (98-107); Glucose 85 mg/dL (74-99); Magnesium 1.7 mg/dL (1.6-2.3); Potassium 3.8 mmol/L (3.5-5.1); Sodium 137 mmol/L (137-145); Total Bilirubin 0.5 mg/dL (0.2-1.3); Total Protein 6.8 g/dL (6.3-8.2)
[2019-07-15 15:48] LABS: Partial Thromboplastin Time 22.8 sec (22.0-30.0); Prothrombin Time 10.3 sec (9.0-12.0)
--- NOTE | 2019-07-15 16:06 | XR ---
EXAMINATION TYPE: XR chest 2V DATE OF EXAM: 07/15/2019 HISTORY: Chest Pain. REFERENCE: Previous study dated 06/09/2019. FINDINGS: There is been a previous ACDF of the lower cervical spine. There is a partial eventration of the right hemidiaphragm. The lungs are clear. Heart size upper limi ts of normal. Pleural spaces are clear. IMPRESSION: NO ACTIVE INTRATHORACIC DISEASE.
[2019-07-15] MEDS ORDERED: FAMOTIDINE 20 MG/2 ML VIAL IV STA (16:33)
[2019-07-15] MEDS ORDERED: diphenhydrAMINE 50 MG/ML 1 ML VIAL IVP STA (16:33)
[2019-07-15] MEDS ORDERED: methylPREDNISolone SOD SUCCI 125 MG/2 ML VIAL IV STA (16:33)
[2019-07-15] MEDS ORDERED: ISOSORBIDE MONONITRATE ER 30 MG TAB.ER.24H PO STA (17:46)
--- NOTE | 2019-07-15 17:47 | CT ---
EXAMINATION TYPE: CT angio chest DATE OF EXAM: 07/15/2019 5:33 PM COMPARISON: Chest CT 10/09/2011 HISTORY: Heart cath yesterday, mid chest pain radiating up right side of neck and jaw. CT DLP: 975.3 mGycm Automated exposure control for dose reduction was used. CONTRAST: CTA scan of the thorax is performed without and with IV Contrast, patient injected with 100 mL of Iso madeline 370. FINDINGS: No aortic intramural hematoma. No aortic dissection flap. Normal course and caliber of the thoracic a melisa. Peripheral calcified atherosclerotic plaques throughout the thoracic aorta; eccentric noncalcif ied plaque noted of the proximal abdominal aorta. No cardiomegaly. No pericardial effusion. Atherosclerotic calcifications throughout the left coronary artery. There are no greater than 1 cm hilar or mediastinal lymph nodes. No airspace consolidation. Bibasilar subsegmental atelectasis. Tracheobronchial tree is patent. No pl eural effusion or pneumothorax. Osseous structures are intact. IMPRESSION: No acute aortic abnormality.
[2019-07-15 18:04] VITALS: BP 122/87; PULSE 70
[2019-07-15 18:08] VITALS: TEMP 98.2
== END 2019-07-15 18:07 | disposition home or self-care (01) ==
LOC: EC 14:42
DX: R07.89 Other chest pain (principal); I25.2 Old myocardial infarction; E78.5 Hyperlipidemia, unspecified; I10 Essential (primary) hypertension; M19.90 Unspecified osteoarthritis, unspecified site; I34.1 Nonrheumatic mitral (valve) prolapse; K21.9 Gastro-esophageal reflux disease without esophagitis; K58.9 Irritable bowel syndrome, unspecified; Z79.82 Long term (current) use of aspirin; Z79.899 Other long term (current) drug therapy; Z87.891 Personal history of nicotine dependence; Z88.6 Allergy status to analgesic agent; Z91.041 Radiographic dye allergy status; Z86.73 Personal history of transient ischemic attack (TIA), and cerebral infarction without residual deficits; Z95.5 Presence of coronary angioplasty implant and graft; Z98.1 Arthrodesis status
CPT/HCPCS: 36415; 93005; 83880; 80053; 83690; 83735; 84484; 85025; 85610; 85730; 71046; 71275; 99285; 96374; 96375 ×2; J1200; J2930; Q9967

== ENCOUNTER → 2020-08-19 | Outpatient (CLI) | payer MEDICARE ==
--- NOTE | 2020-08-20 09:35 | MM ---
Reason for exam: screening (asymptomatic). Last mammogram was performed 1 year and 10 months ago. History: Patient is postmenopausal. Benign ultrasound-guided core biopsy of the left breast, March 10, 2001. 4 cyst aspirations of the left breast. Core biopsy of the left breast. 2 excisional biopsies of the left breast. Took estrogen for 11 years beginning at age 40. Physical Findings: A clinical breast exam by your physician is recommended on an annual basis and results should be correlated with mammographic findings. MG 3D Screening Mammo W/Cad Bilateral CC and MLO view(s) were taken. Prior study comparison: October 21, 2018, bilateral MG 3d screening mammo w/cad. September 22, 2017, bilateral MG 3d diag mammo w/cad OBED. The breast tissue is heterogeneously dense. This may lower the sensitivity of mammography. No significant changes when compared with prior studies. ASSESSMENT: Benign, BI-RAD 2 RECOMMENDATION: Routine screening mammogram of both breasts in 1 year.
== END | disposition home or self-care (01) ==
LOC: RADMAMWWP 10:54
PROVIDERS: ATTEND Family Medicine
DX: Z12.31 Encounter for screening mammogram for malignant neoplasm of breast (principal)
CPT/HCPCS: 77063; 77067

== ENCOUNTER → 2020-11-14 | Outpatient (CLI) | payer MEDICARE ==
--- NOTE | 2020-11-14 12:35 | CT ---
EXAMINATION TYPE: CT brain wo con DATE OF EXAM: 11/14/2020 COMPARISON: 09/19/2018 HISTORY: dizziness, swishing noise in ears, history of vertigo CT DLP: 858.[address] of the brain was performed. The ventricles, basal cisterns and sulci overlying the cerebral convexities demonstrate mild enlargem ent. There is no evidence for intracranial hemorrhage or sulcal effacement. There is decreased attenuation about the periventricular white matter and deep white matter of both c erebral hemispheres, compatible with chronic small vessel ischemia. Differential diagnosis does inclu de demyelination. No mass effects are seen.No midline shift. Osseous calvarium is intact. If symptoms persist consider MRI. IMPRESSION: 1. Age related atrophic and chronic small vessel ischemic change without acute intracranial process s een at this time.
== END | disposition home or self-care (01) ==
LOC: RADCTMAIN 10:58
PROVIDERS: ATTEND Family Medicine
DX: G31.1 Senile degeneration of brain, not elsewhere classified (principal); I67.82 Cerebral ischemia
CPT/HCPCS: 70450

== ENCOUNTER → 2021-09-19 | Outpatient (CLI) | payer MEDICARE ==
--- NOTE | 2021-09-24 13:53 | MM ---
Reason for exam: screening (asymptomatic). Last mammogram was performed 1 year and 1 month ago. History: Patient is postmenopausal. Benign ultrasound-guided core biopsy of the left breast, March 10, 2001. 4 cyst aspirations of the left breast. Core biopsy of the left breast. 2 excisional biopsies of the left breast. Took estrogen for 11 years beginning at age 40. Physical Findings: A clinical breast exam by your physician is recommended on an annual basis and results should be correlated with mammographic findings. MG 3D Screening Mammo W/Cad Bilateral CC and MLO view(s) were taken. Prior study comparison: August 19, 2020, bilateral MG 3d screening mammo w/cad. October 21, 2018, bilateral MG 3d screening mammo w/cad. The breast tissue is heterogeneously dense. This may lower the sensitivity of mammography. Benign appearing bilateral calcifications. No significant changes when compared with prior studies. ASSESSMENT: Benign, BI-RAD 2 RECOMMENDATION: Routine screening mammogram of both breasts in 1 year.
== END | disposition home or self-care (01) ==
LOC: RADMAMWWP 10:54
PROVIDERS: ATTEND Family Medicine
DX: Z12.31 Encounter for screening mammogram for malignant neoplasm of breast (principal); Z78.0 Asymptomatic menopausal state
CPT/HCPCS: 77063; 77067

== ENCOUNTER 2021-12-05 11:59 | Inpatient (IN) | payer MEDICARE ==
[2021-12-05] MEDS ORDERED: diphenhydrAMINE 50 MG/ML 1 ML VIAL IVP STA (12:43)
[2021-12-05] MEDS ORDERED: methylPREDNISolone SOD SUCCI 125 MG/2 ML VIAL IV STA (12:43)
[2021-12-05] MEDS ORDERED: FAMOTIDINE 20 MG/2 ML VIAL IV STA (12:43)
[2021-12-05 13:31] LABS: Basophils # (A) 0.1 k/uL (0-0.2); Basophils % (A) 1 %; Eosinophils # (A) 0.2 k/uL (0-0.7); Eosinophils % (A) 2 %; HCT 43.7 % (34.0-46.0); HGB 14.7 gm/dL (11.4-16.0); Lymphocytes % (A) 14 %; MCH 32.3 pg (25.0-35.0); MCHC 33.7 g/dL (31.0-37.0); MCV 95.8 fL (80.0-100.0); Mean Platelet Volume 8.1; Monocytes # (A) 1.3 k/uL (0-1.0); Monocytes % (A) 9 %; Neutrophils # (A) 10.6 k/uL (1.3-7.7); Neutrophils % (A) 72 %; Platelet Count 510 k/uL (150-450); RBC 4.56 m/uL (3.80-5.40); RDW 13.3 % (11.5-15.5); WBC 14.8 k/uL (3.8-10.6)
[2021-12-05 14:10] LABS: INR 1.1 (<1.2); Partial Thromboplastin Time 26.1 sec (22.0-30.0); Prothrombin Time 11.3 sec (9.0-12.0)
--- NOTE | 2021-12-05 14:37 | ED ---
SOB HPI - General Chief Complaint: Shortness of Breath Stated Complaint: SOB,PCP sent pt in Source: patient Mode of arrival: ambulatory Limitations: no limitations - History of Present Illness Initial Comments: Patient is a 71-year-old female with past medical history of asthma, CVA, hypertension, hyperlipidemia presents to the emergency department with reported chest pain. States that she was hospitalized at [facility] last week. She had swelling to her right lower extremity and was found to have a DVT. She was placed on heparin and then transition to Eliquis. Patient reports that she's been taking her medications as directed. She began having some discomfort on her right flank. States that she woke up this morning he began having left sided flank pain with associated shortness of breath. She called her primary care doctor who recommended that she come into the emergency department for evaluation of possible PE. States that she did not have a PE workup during her DVT admission because she was not having symptoms of chest pain at that time. She denies any fevers or chills. No cough. Denies any provoking factors for DVT. She sees Dr. Terry and is supposed to be following up with him in several weeks for further management. She denies ripping or tearing sensation or back. She denies any missed doses of her Eliquis. No other alleviating, precipitating or modifying factors - Related Data Home Medications Medication Instructions Recorded Confirmed Atorvastatin [Lipitor] 20 mg PO HS 05/17/14 12/05/21 Omeprazole [PriLOSEC] 20 mg PO BID 05/17/14 12/05/21 diphenhydrAMINE HCL [Benadryl] 75 mg PO HS 06/09/19 12/05/21 Hydrocortisone Cream 1 applic TOPICAL DAILY PRN 12/05/21 12/05/21 [Hydrocortisone 2.5% Cream] Isosorbide Mononitrate ER [Imdur] 60 mg PO DAILY 12/05/21 12/05/21 Ketoconazole 2% Cream [Nizoral 2%] 1 applic TOPICAL DAILY PRN 12/05/21 12/05/21 Losartan Potassium 100 mg PO DAILY 12/05/21 12/05/21 amLODIPine [Norvasc] 5 mg PO HS 12/05/21 12/05/21 atenoloL [Tenormin] 50 mg PO BID 12/05/21 12/05/21 Previous Rx's Medication Instructions Recorded Nitroglycerin Sl Tabs [Nitrostat] 0.4 mg SUBLINGUAL Q5M PRN #20 tab 06/10/19 Apixaban [Eliquis Starter Pack 5 - 10 mg PO DIRECTED #0 12/07/21 (for VTE)] Allergies Allergy/AdvReac Type Severity Reaction Status Date / Time Iodinated Contrast Media Allergy Anaphylaxis Verified 12/05/21 14:30 [Iodinated Contrast Media - IV Dye] tramadol HCl [From Ultram] Allergy Itching Verified 12/05/21 14:30 Review of Systems ROS Statement: Those systems with pertinent positive or pertinent negative responses have been documented in the HPI. ROS Other: All systems not noted in ROS Statement are negative. Past Medical History Past Medical History: Asthma, Chest Pain / Angina, CVA/TIA, GERD/Reflux, Hyperlipidemia, Hypertension, Mitral Valve Prolapse (MVP), Osteoarthritis (OA) Additional Past Medical History / Comment(s): intermittent harsh barking non- productive cough at night,TIA-no residual,heart murmur; IBS degenerative disc disease,spurs, recent chest pain History of Any Multi-Drug Resistant Organisms: None Reported Past Surgical History: Adenoidectomy, Appendectomy, Heart Catheterization, Hysterectomy, Tonsillectomy Additional Past Surgical History / Comment(s): cervical fusion C4-C5 with screws and pins in place, bilateral blepharoplasty (eye lid sx); left breast biopsies last one in 1994, cataracts removed Past Anesthesia/Blood Transfusion Reactions: Previous Problems w/ Anesthesia, Family History of Problems w/ Anesthesia, Motion Sickness Additional Past Anesthesia/Blood Transfusion Reaction / Comment(s): "wake up slowly from anesthesia",dt has hard time waking up from anesthesia.No hx blood transfusion. Past Psychological History: No Psychological Hx Reported Smoking Status: Former smoker, Never smoker Past Alcohol Use History: None Reported Past Drug Use History: None Reported - Past Family History Mother Family Medical History: No Reported History Additional Family Medical History / Comment(s): at age 42 Father Additional Family Medical History / Comment(s): "bad heart valve" General Exam Limitations: no limitations General appearance: alert, in no apparent distress Head exam: Present: atraumatic, normocephalic, normal inspection Eye exam: Present: normal appearance, PERRL, EOMI. Absent: scleral icterus, conjunctival injection, periorbital swelling ENT exam: Present: normal exam, mucous membranes moist Neck exam: Present: normal inspection. Absent: tenderness, meningismus, lymphadenopathy Respiratory exam: Present: normal lung sounds bilaterally. Absent: respiratory distress, wheezes, rales, rhonchi, stridor Cardiovascular Exam: Present: regular rate, normal rhythm, normal heart sounds. Absent: systolic murmur, diastolic murmur, rubs, gallop, clicks GI/Abdominal exam: Present: soft, normal bowel sounds. Absent: distended, tenderness, guarding, rebound, rigid Extremities exam: Present: normal inspection, full ROM, normal capillary refill. Absent: tenderness, pedal edema, joint swelling, calf tenderness Back exam: Present: CVA tenderness (L) Neurological exam: Present: alert, oriented X3, CN II-XII intact Psychiatric exam: Present: normal affect, normal mood Skin exam: Present: warm, dry, intact, normal color. Absent: rash Course Vital Signs 12/05/21 12/05/21 12:05 17:05 Temperature 98.2 F Pulse Rate 91 79 Respiratory 18 18 Rate Blood Pressure 158/84 165/85 O2 Sat by Pulse 98 98 Oximetry Medical Decision Making - Medical Decision Making Upon arrival patient was placed into room 10. A thorough history and physical exam was performed. Patient is placed on continuous pulse ox and cardiac monitoring. A 12-lead EKG was obtained. Laboratory studies were conducted. White count mildly elevated at 14.8. Troponin is negative. BNP 362. Patient is sent for a CT of her chest which demonstrates multiple bilateral PEs within the second and third order branches of the lower lobes bilaterally. As the patient is reporting new symptoms of chest pain and undetermined whether the PEs were obtained while already on anticoagulation or prior, I did recommend admission for echo. Cardiology will be counseled that as they are on for PERT this week. Will also consult Dr. Terry as she has seen him previously in the past. Patient did agree to this treatment plan. Echo was ordered. Patient currently awaiting a bed on the floor in stable condition - Lab Data Result diagrams: 12/06/21 06:44 12/06/21 06:44 Lab Results 12/05/21 12/05/21 12/05/21 Range/Units 12:55 12:55 12:55 WBC 14.8 H (3.8-10.6) k/uL RBC 4.56 (3.80-5.40) m/uL Hgb 14.7 (11.4-16.0) gm/dL Hct 43.7 (34.0-46.0) % MCV 95.8 (80.0-100.0) fL MCH 32.3 (25.0-35.0) pg MCHC 33.7 (31.0-37.0) g/dL RDW 13.3 (11.5-15.5) % Plt Count 510 H (150-450) k/uL MPV 8.1 Neutrophils % 72 % Lymphocytes % 14 % Monocytes % 9 % Eosinophils % 2 % Basophils % 1 % Neutrophils # 10.6 H (1.3-7.7) k/uL Lymphocytes # 2.0 (1.0-4.8) k/uL Monocytes # 1.3 H (0-1.0) k/uL Eosinophils # 0.2 (0-0.7) k/uL Basophils # 0.1 (0-0.2) k/uL PT 11.3 (9.0-12.0) sec INR 1.1 (<1.2) APTT 26.1 (22.0-30.0) sec Sodium (137-145) mmol/L Potassium (3.5-5.1) mmol/L Chloride (98-107) mmol/L Carbon Dioxide (22-30) mmol/L Anion Gap mmol/L BUN (7-17) mg/dL Creatinine (0.52-1.04) mg/dL Est GFR (CKD-EPI)AfAm (>60 ml/min/1.73 sqM) Est GFR (CKD-EPI)NonAf (>60 ml/min/1.73 sqM) Glucose (74-99) mg/dL Plasma Lactic Acid Ralph 1.7 (0.7-2.0) mmol/L Calcium (8.4-10.2) mg/dL Total Bilirubin (0.2-1.3) mg/dL AST (14-36) U/L ALT (4-34) U/L Alkaline Phosphatase (38-126) U/L Troponin I (0.000-0.034) ng/mL NT-Pro-B Natriuret Pep pg/mL Total Protein (6.3-8.2) g/dL Albumin (3.5-5.0) g/dL 12/05/21 12/05/21 12/05/21 Range/Units 12:55 14:00 14:00 WBC (3.8-10.6) k/uL RBC (3.80-5.40) m/uL Hgb (11.4-16.0) gm/dL Hct (34.0-46.0) % MCV (80.0-100.0) fL MCH (25.0-35.0) pg MCHC (31.0-37.0) g/dL RDW (11.5-15.5) % Plt Count (150-450) k/uL MPV Neutrophils % % Lymphocytes % % Monocytes % % Eosinophils % % Basophils % % Neutrophils # (1.3-7.7) k/uL Lymphocytes # (1.0-4.8) k/uL Monocytes # (0-1.0) k/uL Eosinophils # (0-0.7) k/uL Basophils # (0-0.2) k/uL PT (9.0-12.0) sec INR (<1.2) APTT (22.0-30.0) sec Sodium 135 L (137-145) mmol/L Potassium 4.0 (3.5-5.1) mmol/L Chloride 102 (98-107) mmol/L Carbon Dioxide 26 (22-30) mmol/L Anion Gap 7 mmol/L BUN 17 (7-17) mg/dL Creatinine 0.89 (0.52-1.04) mg/dL Est GFR (CKD-EPI)AfAm 74 (>60 ml/min/1.73 sqM) Est GFR (CKD-EPI)NonAf 65 (>60 ml/min/1.73 sqM) Glucose 106 H (74-99) mg/dL Plasma Lactic Acid Ralph (0.7-2.0) mmol/L Calcium 8.5 (8.4-10.2) mg/dL Total Bilirubin 0.7 (0.2-1.3) mg/dL AST 23 (14-36) U/L ALT 26 (4-34) U/L Alkaline Phosphatase 77 (38-126) U/L Troponin I <0.012 (0.000-0.034) ng/mL NT-Pro-B Natriuret Pep 362 pg/mL Total Protein 5.8 L (6.3-8.2) g/dL Albumin 3.3 L (3.5-5.0) g/dL - EKG Data EKG Comments: EKG demonstrates sinus rhythm with a rate of 86. GA interval 125. QRS 87. QTC 378. No acute ST segment elevations or depressions concerning for ischemic changes Disposition Clinical Impression: Chest pain, Pulmonary embolus, DVT (deep venous thrombosis) Disposition: ADMITTED IP TO THIS HOSP Condition: Stable Is patient prescribed a controlled substance at d/c from ED?: No Decision to Admit Reason: Admit from EC Decision Date: 12/05/21 Decision Time: 16:25
[2021-12-05 14:47] LABS: Albumin 3.3 g/dL (3.5-5.0); Calcium 8.5 mg/dL (8.4-10.2); Total Bilirubin 0.7 mg/dL (0.2-1.3); Total Protein 5.8 g/dL (6.3-8.2)
--- NOTE | 2021-12-05 15:20 | CT ---
EXAMINATION TYPE: CT chest angio for PE DATE OF EXAM: 12/05/2021 COMPARISON: None HISTORY: Known DVT, shortness of breath. CT DLP: 341.1 mGycm CONTRAST: CT chest with contrast and 3D reconstruction with MIP imaging is performed with IV Contrast, patient injected with 100 mL of Isovue 370. Contrast-enhanced CT of the chest was performed through the course of the pulmonary arteries with desire g and mediastinal window settings submitted. 3D reconstruction with MIP imaging was also performed. PULMONARY ARTERIES: Filling defects noted within second and third order branches of the lower lobes b ilaterally compatible with pulmonary embolism. There is no evidence for filling defect of the main pu lmonary arteries or sagittal component. Normal opacification of the upper lobe vessels. LUNGS: Small left-sided pleural effusion. Basilar atelectasis. Remainder of the lungs are clear. MEDIASTINUM: Thoracic aorta is of normal caliber,however, evaluation is limited given timing of the contrast bolus. If there is concern for thoracic aortic pathology consider RADHA. Correlate clinicall y . The heart is not enlarged. No evidence for mediastinal mass. No mediastinal lymph nodes greater than 1cm. HILAR STRUCTURES: No evidence for mass. No hilar lymph nodes greater than 1 cm. UPPER ABDOMEN: No significant abnormality is seen. IMPRESSION: 1. The findings are compatible with mild pulmonary embolism.
[2021-12-05] MEDS ORDERED: NALOXONE 0.4 MG/ML 1 ML VIAL IV PRN (16:26)
[2021-12-05] MEDS ORDERED: HEPARIN SODIUM 1,000 UN/ML (10ML VL) IV PRN (16:36)
[2021-12-05] MEDS ORDERED: HEPARIN SODIUM 1,000 UN/ML (10ML VL) IV ONE (16:36)
[2021-12-05] MEDS: HEPARIN SOD,PORK IN 0.45% NACL 25,000 UNIT in 0.45% NACL 1 250ML.BAG IV SCH (17:15)
[2021-12-05] MEDS ORDERED: TRIAMCINOLONE 0.1% CREAM 80 GM TUBE TOPICAL PRN (19:26)
[2021-12-05] MEDS ORDERED: CLOTRIMAZOLE 1% CREAM 30 GM TUBE TOPICAL PRN (19:26)
[2021-12-05] MEDS: ATORVASTATIN 20 MG TAB PO SCH (20:58)
[2021-12-05] MEDS: PANTOPRAZOLE 40 MG TABLET PO SCH (20:58)
[2021-12-05] MEDS: amLODIPine 5 MG TAB PO SCH (20:58)
[2021-12-05] MEDS: atenoloL 50 MG TAB PO SCH (20:58)
[2021-12-06] MEDS: PANTOPRAZOLE 40 MG TABLET PO SCH ×2 (07:44→21:34)
[2021-12-06] MEDS: atenoloL 50 MG TAB PO SCH ×2 (07:44→21:34)
[2021-12-06] MEDS: LOSARTAN 50 MG TAB PO SCH (07:44)
[2021-12-06] MEDS: ISOSORBIDE MONONITRATE ER 60 MG TAB.ER.24H PO SCH (07:44)
[2021-12-06 11:56] LABS: African American GFR (CKD) 73.5 (60.0-200.0); Anion Gap 15.8 mmol/L (10.00-18.00); BUN/Creat Ratio 15.78 Ratio (12.00-20.00); Basophils # (A) 0.03 X 10*3/uL (0.00-0.10); Basophils % (A) 0.2 %; Blood Urea Nitrogen 14.2 mg/dL (9.0-27.0); Calcium 9.3 mg/dL (8.7-10.3); Carbon Dioxide 23.2 mmol/L (20.0-27.5); Eosinophils # (A) 0.01 X 10*3/uL (0.04-0.35); Eosinophils % (A) 0.1 %; HCT 37.5 % (37.2-46.3); HGB 12.1 g/dL (12.0-15.0); Immature Grans, Automated 1.5 %; Lymphocytes # (A) 1.31 X 10*3/uL (0.90-5.00); Lymphocytes % (A) 9.2 %; MCH 30.6 pg (27.0-32.0); MCHC 32.3 g/dL (32.0-37.0); MCV 94.9 fL (80.0-97.0); Monocytes # (A) 1.13 X 10*3/uL (0.20-1.00); Monocytes % (A) 7.9 %; NRBC Per 100 WBC 0 /100 WBCS (0.0-0.0); Neutrophils # (A) 11.53 X 10*3/uL (1.80-7.70); Neutrophils % (A) 81.1 %; Non-African American GFR(CKD) 63.4 (60.0-200.0); Platelet Count 398 X 10*3/uL (140-440); RBC 3.95 X 10*6/uL (4.10-5.20); RDW 12.3 % (11.5-14.5); WBC 14.23 X 10*3/uL (4.50-10.00)
--- NOTE | 2021-12-06 12:32 | P.HPIM ---
History of Present Illness Patient is a pleasant 71-year-old female unknown to me from her previous hospitalization at [facility] She Was Admitted There with DVT and Patient Was Subsequently Discharged on Eliquis Called Her Primary Doctor Because Patient [facility] Having Pleuritic Chest Pain. Patient Was Subsequently Sent in Here Found to Have a Small PE. Troponins Are Negative. Echo Is Being Obtained. Patient the pruritic chest pain is better now patient also has some musculoskeletal chest pain. Patient denied any dysuria nausea vomiting patient is having some cough without any significant sputum production. Patient has significant bruises all over. Patient has history of bruising. Now this bruising is bit worse because of Eliquis. REVIEW OF SYSTEMS: CONSTITUTIONAL: No fever, no malaise, no fatigue. HEENT: No recent visual problems or hearing problems. Denied any sore throat. CARDIOVASCULAR: orthopnea, PND, no palpitations, no syncope. PULMONARY: No shortness of breath, no cough, no hemoptysis. GASTROINTESTINAL: No diarrhea, no nausea, no vomiting, no abdominal pain. NEUROLOGICAL: No headaches, no weakness, no numbness. HEMATOLOGICAL: Denies any bleeding or petechiae. GENITOURINARY: Denies any burning micturition, frequency, or urgency. MUSCULOSKELETAL/RHEUMATOLOGICAL: Denies any joint pain, swelling, or any muscle pain. ENDOCRINE: Denies any polyuria or polydipsia. The rest of the 14-point review of systems is negative. PHYSICAL EXAMINATION: GENERAL: The patient is alert and oriented x3, not in any acute distress. Well developed, well nourished. HEENT: Pupils are round and equally reacting to light. EOMI. No scleral icterus. No conjunctival pallor. Normocephalic, atraumatic. No pharyngeal erythema. No thyromegaly. CARDIOVASCULAR: S1 and S2 present. No murmurs, rubs, or gallops. PULMONARY: Chest is clear to auscultation, no wheezing or crackles. ABDOMEN: Soft, nontender, nondistended, normoactive bowel sounds. No palpable organomegaly. MUSCULOSKELETAL: No joint swelling or deformity. EXTREMITIES: No cyanosis, clubbing, or pedal edema. NEUROLOGICAL: Gross neurological examination did not reveal any focal deficits. SKIN: Multiple bruises all over Assessment and plan -Pulmonary embolism: So far clinically there is no evidence of pulmonary hypertension we will await the echocardiogram if echocardiogram doesn't show any pulmonary hypertension knee patient probably can be discharged on Eliquis tomorrow or later today. Patient received a total of 3 days of for 10 mg of Eliquis. -Hyperlipidemia -Recent DVT about less than a week ago. -Gastric esophageal reflux disease for which patient is on Prilosec -Asthma without any acute exacerbation -Hyperlipidemia -Hypertension -History of mitral valve prolapse -CVA TIA in the past DVT prophylaxis: Patient is on anticoagulation as mentioned above Past Medical History Past Medical History: Asthma, Chest Pain / Angina, CVA/TIA, GERD/Reflux, Hyperlipidemia, Hypertension, Mitral Valve Prolapse (MVP), Osteoarthritis (OA) Additional Past Medical History / Comment(s): intermittent harsh barking non- productive cough at night,TIA-no residual,heart murmur; IBS degenerative disc disease,spurs, recent chest pain History of Any Multi-Drug Resistant Organisms: None Reported Past Surgical History: Adenoidectomy, Appendectomy, Heart Catheterization, Hysterectomy, Tonsillectomy Additional Past Surgical History / Comment(s): cervical fusion C4-C5 with screws and pins in place, bilateral blepharoplasty (eye lid sx); left breast biopsies last one in 1994, cataracts removed Past Anesthesia/Blood Transfusion Reactions: Previous Problems w/ Anesthesia, Family History of Problems w/ Anesthesia, Motion Sickness Additional Past Anesthesia/Blood Transfusion Reaction / Comment(s): "wake up slowly from anesthesia",dt has hard time waking up from anesthesia.No hx blood transfusion. Past Psychological History: No Psychological Hx Reported Smoking Status: Former smoker, Never smoker Past Alcohol Use History: None Reported Past Drug Use History: None Reported - Past Family History Mother Family Medical History: No Reported History Additional Family Medical History / Comment(s): at age 42 Father Additional Family Medical History / Comment(s): "bad heart valve" Medications and Allergies Home Medications Medication Instructions Recorded Confirmed Type Atorvastatin [Lipitor] 20 mg PO HS 05/17/14 12/05/21 History Omeprazole [PriLOSEC] 20 mg PO BID 05/17/14 12/05/21 History diphenhydrAMINE HCL [Benadryl] 75 mg PO HS 06/09/19 12/05/21 History Nitroglycerin Sl Tabs [Nitrostat] 0.4 mg SUBLINGUAL Q5M PRN #20 tab 06/10/19 12/05/21 Rx Apixaban [Eliquis Starter Pack 5 - 10 mg PO DIRECTED 12/05/21 12/05/21 History (for VTE)] Hydrocortisone Cream 1 applic TOPICAL DAILY PRN 12/05/21 12/05/21 History [Hydrocortisone 2.5% Cream] Isosorbide Mononitrate ER [Imdur] 60 mg PO DAILY 12/05/21 12/05/21 History Ketoconazole 2% Cream [Nizoral 2%] 1 applic TOPICAL DAILY PRN 12/05/21 12/05/21 History Losartan Potassium 100 mg PO DAILY 12/05/21 12/05/21 History amLODIPine [Norvasc] 5 mg PO HS 12/05/21 12/05/21 History atenoloL [Tenormin] 50 mg PO BID 12/05/21 12/05/21 History Allergies Allergy/AdvReac Type Severity Reaction Status Date / Time Iodinated Contrast Media Allergy Anaphylaxis Verified 12/05/21 14:30 [Iodinated Contrast Media - IV Dye] tramadol HCl [From [facility]] Allergy Itching Verified 12/05/21 14:30 Physical Exam Vitals: Vital Signs Temp Pulse Pulse Resp BP BP Pulse Ox 12/06/21 08:00 98.1 F 83 16 159/83 98 12/06/21 02:53 98.0 F 84 20 159/81 96 12/05/21 23:38 75 136/74 12/05/21 19:26 90 17 12/05/21 19:24 98 F 90 17 150/81 98 12/05/21 18:03 97.8 F 17 178/90 95 12/05/21 17:05 79 18 165/85 98 Intake and Output 12/05/21 12/06/21 12/06/21 22:59 06:59 14:59 Intake Total 596.504 83.688 Balance 596.504 83.688 Intake: Intake, IV Titration 96.504 83.688 Amount Heparin Sod,Pork in 0.45% 96.504 83.688 NaCl 25,000 unit In 0.45 % NaCl 1 250ml.bag @ 18 UNITS/KG/HR 14.696 mls/hr IV .Q17H1M [facility] Rx#: [id number] Oral 500 Other: Voiding Method Toilet # Voids 1 1 Weight 81.647 kg Results CBC & Chem 7: 12/06/21 06:44 12/06/21 06:44 Labs: Abnormal Lab Results - Last 24 Hours (Table) 12/05/21 12/05/21 12/05/21 Range/Units 12:55 14:00 22:32 WBC 14.8 H (3.8-10.6) k/uL RBC (4.10-5.20) X 10*6/uL Plt Count 510 H (150-450) k/uL Immature Gran # (0.00-0.04) X 10*3/uL Neutrophils # 10.6 H (1.3-7.7) k/uL Monocytes # 1.3 H (0-1.0) k/uL Eosinophils # (0.04-0.35) X 10*3/uL APTT >200.0 H* (22.0-30.0) sec Sodium 135 L (137-145) mmol/L Glucose 106 H (74-99) mg/dL Total Protein 5.8 L (6.3-8.2) g/dL Albumin 3.3 L (3.5-5.0) g/dL 12/06/21 12/06/21 12/06/21 Range/Units 06:44 06:44 06:44 WBC 14.23 H (3.8-10.6) k/uL RBC 3.95 L (4.10-5.20) X 10*6/uL Plt Count (150-450) k/uL Immature Gran # 0.22 H (0.00-0.04) X 10*3/uL Neutrophils # 11.53 H (1.3-7.7) k/uL Monocytes # 1.13 H (0-1.0) k/uL Eosinophils # 0.01 L (0.04-0.35) X 10*3/uL APTT 91.7 H (22.0-30.0) sec Sodium (137-145) mmol/L Glucose 120 H (74-99) mg/dL Total Protein (6.3-8.2) g/dL Albumin (3.5-5.0) g/dL Thrombosis Risk Factor Assmnt - Choose All That Apply Any of the Below Risk Factors Present?: Yes Each Factor Represents 1 point: Obesity (BMI >25) Other Risk Factors: Yes Each Risk Factor Represents 2 Points: Age 61-74 years Each Risk Factor Represents 3 Points: History of DVT/PE Other congenital or acquired thrombophilia - If yes, enter type in comment: No Thrombosis Risk Factor Assessment Total Risk Factor Score: 6 Thrombosis Risk Factor Assessment Level: High Risk
[2021-12-06] MEDS: HEPARIN SOD,PORK IN 0.45% NACL 25,000 UNIT in 0.45% NACL 1 250ML.BAG IV SCH (14:06)
--- NOTE | 2021-12-06 16:01 | P.CRDCN ---
History of Present Illness Consult date: 12/06/21 Reason for Consult (text): Acute chest pain, acute lateral pulmonary embolism History of present illness: This is Yaya Santana NP, I'm dictating on behalf of Dr. Rhodes's H&P and A&P The patient was interviewed and examined. HPI: Patient is pleasant 71-year-old female with a past medical history of asthma, CVA, hypertension, hyperlipidemia who presented to the emergency department with chest pain. Patient states last week she had severe swelling in her right lower extremity. She presented to [facility] and was found to have a right deep vein thrombosis. She was subsequently discharged home on anticoagulation. She reports that initially a few days later she started having some pain in her right flank. She reports yesterday morning she woke up with pain on her left side. She contacted her primary care doctor, who recommended she come to the hospital for a CT angiogram, which is found to be positive for bilateral pulmonary emboli. Patient reports that she had been placed on Eliquis before being discharged from [facility], and has been taking it as prescribed. Today she reports that the chest pain has resolved. She reports some mild shortness of breath with deep breathing. ROS: [No fever, chills, or rigors] [no cough, phlegm, or expectoration] [no nausea, vomiting, or diarrhea] [no hematuria, dysuria] [no musculoskelatal complaints] [no strokes or seizures] [no skin lesions] EXAMINATION: GENERAL: Well-appearing, well-nourished and in no acute distress. NECK: Supple without JVD or thyromegaly. LUNGS: Breath sounds clear to auscultation bilaterally. Respiration equal and unlabored. No wheezes, rales or rhonchi. HEART: Regular rate and rhythm without murmurs, rubs or gallops. S1 and S2 heard. EXTREMITIES: Normal range of motion, no edema. No clubbing or cyanosis. Perip heral pulses intact and strong. REVIEW OF LABS, ECG & MEDICAL DATA: LABS: White count 14.2, hemoglobin 12.1, platelets 12.3, sodium 140, potassium 4.0, B1 14.2, creatinine 0.9, serial troponins 3 less than 0.012 EKG: Normal sinus rhythm IMAGING: CT angiogram dated 12/05/2021 shows findings compatible with mild pulmonary embolism. VITALS: Temp 98.1, pulse 83, respirations 16, blood pressure 159/83, O2 saturation 98% on room air IMPRESSION/PLAN: 1. Acute chest pain-likely secondary to pulmonary embolus. Obtain 2-D echo. 2. Deep vein thrombosis of the right lower extremity-continue Lisa Thank you for the consult and allowing us to participate in the care of this patient. Past Medical History Past Medical History: Asthma, Chest Pain / Angina, CVA/TIA, GERD/Reflux, Hyperlipidemia, Hypertension, Mitral Valve Prolapse (MVP), Osteoarthritis (OA) Additional Past Medical History / Comment(s): intermittent harsh barking non- productive cough at night,TIA-no residual,heart murmur; IBS degenerative disc disease,spurs, recent chest pain History of Any Multi-Drug Resistant Organisms: None Reported Past Surgical History: Adenoidectomy, Appendectomy, Heart Catheterization, Hysterectomy, Tonsillectomy Additional Past Surgical History / Comment(s): cervical fusion C4-C5 with screws and pins in place, bilateral blepharoplasty (eye lid sx); left breast biopsies last one in 1994, cataracts removed Past Anesthesia/Blood Transfusion Reactions: Previous Problems w/ Anesthesia, Family History of Problems w/ Anesthesia, Motion Sickness Additional Past Anesthesia/Blood Transfusion Reaction / Comment(s): "wake up slowly from anesthesia",dt has hard time waking up from anesthesia.No hx blood transfusion. Past Psychological History: No Psychological Hx Reported Smoking Status: Former smoker, Never smoker Past Alcohol Use History: None Reported Past Drug Use History: None Reported - Past Family History Mother Family Medical History: No Reported History Additional Family Medical History / Comment(s): at age 42 Father Additional Family Medical History / Comment(s): "bad heart valve" Medications and Allergies Home Medications Medication Instructions Recorded Confirmed Type Atorvastatin [Lipitor] 20 mg PO HS 05/17/14 12/05/21 History Omeprazole [PriLOSEC] 20 mg PO BID 05/17/14 12/05/21 History diphenhydrAMINE HCL [Benadryl] 75 mg PO HS 06/09/19 12/05/21 History Nitroglycerin Sl Tabs [Nitrostat] 0.4 mg SUBLINGUAL Q5M PRN #20 tab 06/10/19 12/05/21 Rx Apixaban [Eliquis Starter Pack 5 - 10 mg PO DIRECTED 12/05/21 12/05/21 History (for VTE)] Hydrocortisone Cream 1 applic TOPICAL DAILY PRN 12/05/21 12/05/21 History [Hydrocortisone 2.5% Cream] Isosorbide Mononitrate ER [Imdur] 60 mg PO DAILY 12/05/21 12/05/21 History Ketoconazole 2% Cream [Nizoral 2%] 1 applic TOPICAL DAILY PRN 12/05/21 12/05/21 History Losartan Potassium 100 mg PO DAILY 12/05/21 12/05/21 History amLODIPine [Norvasc] 5 mg PO HS 12/05/21 12/05/21 History atenoloL [Tenormin] 50 mg PO BID 12/05/21 12/05/21 History Allergies Allergy/AdvReac Type Severity Reaction Status Date / Time Iodinated Contrast Media Allergy Anaphylaxis Verified 12/05/21 14:30 [Iodinated Contrast Media - IV Dye] tramadol HCl [From [facility]] Allergy Itching Verified 12/05/21 14:30 Physical Exam Vitals: Vital Signs Temp Pulse Pulse Resp BP BP Pulse Ox 12/06/21 08:00 98.1 F 83 16 159/83 98 12/06/21 02:53 98.0 F 84 20 159/81 96 12/05/21 23:38 75 136/74 12/05/21 19:26 90 17 12/05/21 19:24 98 F 90 17 150/81 98 12/05/21 18:03 97.8 F 17 178/90 95 12/05/21 17:05 79 18 165/85 98 Intake and Output 12/06/21 12/06/21 12/06/21 06:59 14:59 22:59 Intake Total 596.504 83.688 Balance 596.504 83.688 Intake: Intake, IV Titration 96.504 83.688 Amount Heparin Sod,Pork in 0.45% 96.504 83.688 NaCl 25,000 unit In 0.45 % NaCl 1 250ml.bag @ 18 UNITS/KG/HR 14.696 mls/hr IV .Q17H1M [facility] Rx#: [id number] Oral 500 Other: # Voids 1 Results 12/06/21 06:44 12/06/21 06:44 Cardiac Enzymes 12/05/21 12/05/21 Range/Units 17:10 22:32 Troponin I <0.012 <0.012 (0.000-0.034) ng/mL Coagulation 12/05/21 12/06/21 Range/Units 22:32 06:44 APTT >200.0 H* 91.7 H (22.0-30.0) sec CBC 12/06/21 Range/Units 06:44 WBC 14.23 H (4.50-10.00) X 10*3/uL RBC 3.95 L (4.10-5.20) X 10*6/uL Hgb 12.1 (12.0-15.0) g/dL Hct 37.5 (37.2-46.3) % Plt Count 398 (140-440) X 10*3/uL Comprehensive Metabolic Panel 12/06/21 Range/Units 06:44 Sodium 140 (135-145) mmol/L Potassium 4.0 (3.5-5.5) mmol/L Chloride 101 (96-109) mmol/L Carbon Dioxide 23.2 (20.0-27.5) mmol/L BUN 14.2 (9.0-27.0) mg/dL Creatinine 0.9 (0.6-1.5) mg/dL Glucose 120 H (70-110) mg/dL Calcium 9.3 (8.7-10.3) mg/dL Current Medications Generic Name Dose Route Start Last Admin Trade Name Freq PRN Reason Stop Dose Admin Amlodipine Besylate 5 mg 12/05/21 21:00 12/05/21 20:58 Amlodipine 5 Mg Tab PO 5 mg HS [facility] Administration Apixaban 10 mg 12/06/21 21:00 Apixaban 5 Mg Tab PO 12/13/21 09:01 BID [facility] Protocol Atenolol 50 mg 12/05/21 21:00 12/06/21 07:44 Atenolol 50 Mg Tab PO 50 mg BID [facility] Administration Atorvastatin Calcium 20 mg 12/05/21 21:00 12/05/21 20:58 Atorvastatin 20 Mg Tab PO 20 mg HS [facility] Administration Clotrimazole 1 applic 12/05/21 19:26 Clotrimazole 1% Cream 30 Gm Tube TOPICAL DAILY PRN Rash Isosorbide Mononitrate 60 mg 12/06/21 09:00 12/06/21 07:44 Isosorbide Mononitrate Er 60 Mg Tab.Er.24h PO 60 mg DAILY [facility] Administration Losartan Potassium 100 mg 12/06/21 09:00 12/06/21 07:44 Losartan 50 Mg Tab PO 100 mg DAILY [facility] Administration Naloxone HCl 0.2 mg 12/05/21 16:26 Naloxone 0.4 Mg/Ml 1 Ml Vial IV Q2M PRN Opioid Reversal Pantoprazole Sodium 40 mg 12/05/21 21:00 12/06/21 07:44 Pantoprazole 40 Mg Tablet PO 40 mg BID [facility] Administration Triamcinolone Acetonide 1 applic 12/05/21 19:26 Triamcinolone 0.1% Cream 80 Gm Tube TOPICAL DAILY PRN Rash Intake and Output 12/06/21 12/06/21 12/06/21 06:59 14:59 22:59 Intake Total 596.504 83.688 Balance 596.504 83.688 Intake: Intake, IV Titration 96.504 83.688 Amount Heparin Sod,Pork in 0.45% 96.504 83.688 NaCl 25,000 unit In 0.45 % NaCl 1 250ml.bag @ 18 UNITS/KG/HR 14.696 mls/hr IV .Q17H1M [facility] Rx#: [id number] Oral 500 Other: # Voids 1 12/06/21 06:44 12/06/21 06:44
[2021-12-06 17:28] LABS: Appearance,Urine Clear (Clear); Bilirubin,Urine Negative (Negative); Blood,Urine Negative (Negative); Color,Urine Light Yellow; Glucose,Urine (UA) Negative (Negative); Ketones,Urine Negative (Negative); Leukocyte Esterase,Urine Negative (Negative); Nitrite,Urine Negative (Negative); Protein,Urine Negative (Negative); Specific Gravity,Urine 1.006 (1.001-1.035); Urobilinogen,Urine <2.0 mg/dL (<2.0)
--- NOTE | 2021-12-06 20:00 | ECHOF ---
Referral Reason:b/l pe MEASUREMENTS -------- HEIGHT: 157.5 cm WEIGHT: 81.7 kg BP: RVIDd: 2.6 cm (< 3.3) IVSd: 0.9 cm (0.6 - 1.1) LVIDd: 3.8 cm (3.9 - 5.3) LVPWd: 1.2 cm (0.6 - 1.1) IVSs: 1.3 cm LVIDs: 1.6 cm LVPWs: 1.4 cm MV EXCURSION: 12.842 mm (> 18.000) MV EF SLOPE: 38 mm/s (70 - 150) EPSS: 1.3 cm MV E Jonathan: 0.96 m/s MV DecT: 142 ms MV A Jonathan: 1.07 m/s MV E/A Ratio: 0.89 AR PHT: 913 ms RAP: 5.00 mmHg RVSP: 11.07 mmHg FINDINGS -------- This was a technically adequate study. The left ventricular size is normal. Left ventricular wall thickness is normal. Overall left vent ricular systolic function is normal with, an EF between 55 - 60 %. The left atrial size is normal. The right atrial size is normal. The aortic valve is trileaflet and appears structurally normal. There is mild aortic regurgitation. The mitral valve is normal. There is trace mitral regurgitation. The tricuspid valve appears structurally normal. Trace tricuspid regurgitation present. Right kimo tricular systolic pressure is normal at < 35 mmHg. There is no pulmonic regurgitation present. The aortic root size is normal. Normal inferior vena cava with normal inspiratory collapse consistent with estimated right atrial pre ssure of 5 mmHg. There is no pericardial effusion. CONCLUSIONS -------- 1. The left ventricular size is normal. 2. Left ventricular wall thickness is normal. 3. Overall left ventricular systolic function is normal with, an EF between 55 - 60 %. 4. There is mild aortic regurgitation. 5. There is trace mitral regurgitation. 6. Trace tricuspid regurgitation present. 7. There is no pericardial effusion. KINESIOLOGIST: Cristy Pang RD
[2021-12-06] MEDS: ATORVASTATIN 20 MG TAB PO SCH (21:34)
[2021-12-06] MEDS: APIXABAN 5 MG TAB PO SCH (21:34)
[2021-12-06] MEDS: amLODIPine 5 MG TAB PO SCH (21:34)
[2021-12-07 02:52] VITALS: PULSE 74
[2021-12-07] MEDS: PANTOPRAZOLE 40 MG TABLET PO SCH (07:17)
[2021-12-07] MEDS: atenoloL 50 MG TAB PO SCH (07:17)
[2021-12-07] MEDS: ISOSORBIDE MONONITRATE ER 60 MG TAB.ER.24H PO SCH (07:17)
[2021-12-07] MEDS: APIXABAN 5 MG TAB PO SCH (07:17)
[2021-12-07] MEDS: LOSARTAN 50 MG TAB PO SCH (07:17)
[2021-12-07 08:31] VITALS: BP 140/77; RESP 18; TEMP 98
--- NOTE | 2021-12-07 12:09 | P.CONS ---
History of Present Illness - Reason for Consult Consult date: 12/07/21 DVT/PE Requesting physician: Napoleon Buchanan - Chief Complaint Pleuritic chest pain - History of Present Illness Ms. Gonzalez is a very pleasant 71 yo female with recent admission to [facility] for RLE swelling, found to have RLE DVT. She was started on heparin drip there and discharged on eliquis 10mg bid x 7 d followed by 5mg bid. She was experiencing intermittent lower chest wall pain posteriorly while at the hospital. This pain began to worsen after discharge, pleuritic in nature, which prompted her to call her PCP and was advised to come back to the ER. CT/PE was done, which revealed bilateral subsegmental lower lobe PE's. She was started on a heparin drip and admitted. Feels better now. CBC with WBC 14, Hgb 12, plt 300's. No personal or family history of thrombosis. Her brother has Crohn's and a niece has celiac disease, otherwise no known autoimmune disease. No known malignancy. Her mother did pass away at a young age due to being killed and she has limited knowledge of her mother's health however. Patient has been slightly more sedentary due to Covid and isolating. She has received all her vaccinations. Has not had an infection. Last vaccine was several months ago and not recent. She does however get up every 1-2 hours to either use the restroom or do things around the house or go grocery shopping. Also history of smoking, was cutting down and smoking only about 4 cigarettes a day prior to her admission. Not interested in going back to smoking at this point. No hormone replacement therapy or recent travel or hospitalizations for other possible provoking factors elicited. No miscarriages. Past Medical History Past Medical History: Asthma, Chest Pain / Angina, CVA/TIA, GERD/Reflux, Hyperlipidemia, Hypertension, Mitral Valve Prolapse (MVP), Osteoarthritis (OA) Additional Past Medical History / Comment(s): intermittent harsh barking non- productive cough at night,TIA-no residual,heart murmur; IBS degenerative disc disease,spurs, recent chest pain History of Any Multi-Drug Resistant Organisms: None Reported Past Surgical History: Adenoidectomy, Appendectomy, Heart Catheterization, Hysterectomy, Tonsillectomy Additional Past Surgical History / Comment(s): cervical fusion C4-C5 with screws and pins in place, bilateral blepharoplasty (eye lid sx); left breast biopsies last one in 1994, cataracts removed Past Anesthesia/Blood Transfusion Reactions: Previous Problems w/ Anesthesia, Family History of Problems w/ Anesthesia, Motion Sickness Additional Past Anesthesia/Blood Transfusion Reaction / Comm: "wake up slowly from anesthesia",dt has hard time waking up from anesthesia.No hx blood transfusion. Past Psychological History: No Psychological Hx Reported Smoking Status: Former smoker, Never smoker Past Alcohol Use History: None Reported Past Drug Use History: None Reported - Past Family History Mother Family Medical History: No Reported History Additional Family Medical History / Comment(s): at age 42 Father Additional Family Medical History / Comment(s): "bad heart valve" Medications and Allergies Home Medications Medication Instructions Recorded Confirmed Type Atorvastatin [Lipitor] 20 mg PO HS 05/17/14 12/05/21 History Omeprazole [PriLOSEC] 20 mg PO BID 05/17/14 12/05/21 History diphenhydrAMINE HCL [Benadryl] 75 mg PO HS 06/09/19 12/05/21 History Nitroglycerin Sl Tabs [Nitrostat] 0.4 mg SUBLINGUAL Q5M PRN #20 tab 06/10/19 0 12/05/21 Rx Apixaban [Eliquis Starter Pack 5 - 10 mg PO DIRECTED 12/05/21 12/05/21 History (for VTE)] Hydrocortisone Cream 1 applic TOPICAL DAILY PRN 12/05/21 12/05/21 History [Hydrocortisone 2.5% Cream] Isosorbide Mononitrate ER [Imdur] 60 mg PO DAILY 12/05/21 12/05/21 History Ketoconazole 2% Cream [Nizoral 2%] 1 applic TOPICAL DAILY PRN 12/05/21 12/05/21 History Losartan Potassium 100 mg PO DAILY 12/05/21 12/05/21 History amLODIPine [Norvasc] 5 mg PO HS 12/05/21 12/05/21 History atenoloL [Tenormin] 50 mg PO BID 12/05/21 12/05/21 History Allergies Allergy/AdvReac Type Severity Reaction Status Date / Time Iodinated Contrast Media Allergy Anaphylaxis Verified 12/05/21 14:30 [Iodinated Contrast Media - IV Dye] tramadol HCl [From Ultram] Allergy Itching Verified 12/05/21 14:30 Physical Exam Vitals: Vital Signs Temp Pulse Resp BP Pulse Ox 12/06/21 14:00 97.9 F 79 16 147/71 98 12/06/21 08:00 98.1 F 83 16 159/83 98 12/06/21 02:53 98.0 F 84 20 159/81 96 12/05/21 23:38 75 136/74 12/05/21 19:26 90 17 12/05/21 19:24 98 F 90 17 150/81 98 12/05/21 18:03 97.8 F 17 178/90 95 Intake and Output 12/06/21 12/06/21 12/06/21 06:59 14:59 22:59 Intake Total 596.504 83.688 Balance 596.504 83.688 Intake: Intake, IV Titration 96.504 83.688 Amount Heparin Sod,Pork in 0.45% 96.504 83.688 NaCl 25,000 unit In 0.45 % NaCl 1 250ml.bag @ 18 UNITS/KG/HR 14.696 mls/hr IV .Q17H1M [facility] Rx#: [id number] Oral 500 Other: # Voids 1 Gen.: no acute distress. HEENT: Mucosa moist. No conjunctival pallor or scleral icterus. Neck: Neck supple. Lungs: No respiratory distress. Heart: Normal rate. Abdomen: Soft. Neuro: Alert and oriented 3. Skin: No jaundice. Psych: Appropriate affect. Results CBC & Chem 7: 12/06/21 06:44 12/06/21 06:44 Labs: Abnormal Lab Results - Last 24 Hours (Table) 12/05/21 12/06/21 12/06/21 Range/Units 22:32 06:44 06:44 WBC 14.23 H (4.50-10.00) X 10*3/uL RBC 3.95 L (4.10-5.20) X 10*6/uL Immature Gran # 0.22 H (0.00-0.04) X 10*3/uL Neutrophils # 11.53 H (1.80-7.70) X 10*3/uL Monocytes # 1.13 H (0.20-1.00) X 10*3/uL Eosinophils # 0.01 L (0.04-0.35) X 10*3/uL APTT >200.0 H* (22.0-30.0) sec Glucose 120 H (70-110) mg/dL 12/06/21 Range/Units 06:44 WBC (4.50-10.00) X 10*3/uL RBC (4.10-5.20) X 10*6/uL Immature Gran # (0.00-0.04) X 10*3/uL Neutrophils # (1.80-7.70) X 10*3/uL Monocytes # (0.20-1.00) X 10*3/uL Eosinophils # (0.04-0.35) X 10*3/uL APTT 91.7 H (22.0-30.0) sec Glucose (70-110) mg/dL CT scan - chest: report reviewed Assessment and Plan Assessment: 1. Bilateral PE 2. RLE DVT 3. Leukocytosis Plan: Ms. Gonzalez is a very pleasant 71-year-old female who is here for bilateral subsegmental PE. She was hospitalized on outside facility a few days ago for acute onset right lower extremity swelling, found to have an acute DVT. She was having a reticulocyte lower chest wall pain during the hospitalization which continued after discharge. She was discharged on a liquid is. Presented back due to worsening of the pleuritic chest pain, found to have bilateral subsegmental PEs. No significant provoking factors for her VTE other than BMI of 33 and smoking 4 cigarettes a day. She is up-to-date on her age-appropriate cancer screening. She was seen by Dr. Terry a year or so ago for ecchymosis and workup at that time per patient is unremarkable. I don't suspect that her PE is failure of our request. This was likely present when she was hospitalized for the lower extremity DVT however imaging was not obtained at that time. She is much improved on a heparin drip his presentation here. I agree that she can be discharged back on outlook was. Continue her starter pack complete her 7 days of 10 mg twice a day all of it by 5 mg twice a day. She should follow-up with Dr. Terry to consider hypercoagulable workup at that point. There is autoimmune disease in the family or patient does not have a personal history of autoimmune disease or miscarriages. Counseled her on smoking cessation as well. She does plan to continue to abstain from smoking now that she is been off of it since her hospitalization a week ago. Discussed with patient detail she is agreeable to the plan. All of her questions were answered.
--- NOTE | 2021-12-07 14:26 | P.PN ---
Subjective Progress Note Date: 12/07/21 This is Yaya hutchison NP, I'm dictating on behalf of Dr. Rhodes's H&P and A&P. Patient was interviewed and examined. Patient is a pleasant 71-year-old female who initially presented to the hospital with acute respiratory insufficiency secondary to bilateral pulmonary emboli. Patient reports that she is doing well today. She denies chest pain, shortness of breath, heart palpitations, dizziness, and syncope. An echocardiogram was completed yesterday which demonstrates an EF of 55-60%. Patient also has mild aortic and mitral valve regurgitation. Patient is on adequate anticoagulation medication at this time. GENERAL: Well-appearing, well-nourished and in no acute distress. NECK: Supple without JVD or thyromegaly. LUNGS: Breath sounds clear to auscultation bilaterally. Respiration equal and unlabored. No wheezes, rales or rhonchi. HEART: Regular rate and rhythm without murmurs, rubs or gallops. S1 and S2 heard. EXTREMITIES: Normal range of motion, no edema. No clubbing or cyanosis. Peripheral pulses intact and strong. VITALS: Temp 98.0, pulse 74, respirations 18, blood pressure 140/77, O2 saturation 94% on room air TELEMETRY: Normal sinus rhythm IMPRESSION/PLAN: 1. Acute chest pain-secondary to pulmonary embolism. 2-D echo shows an EF of 55-60%, with mild aortic and trace mitral valve regurgitation. Patient is currently stable on Eliquis. 2. DVT of the right lower extremity-continue Eliquis as ordered. From a cardiology standpoint patient is currently stable on her medications. She could be discharged home at this time, continuing the Eliquis. Please do not hesitate to contact us if further recommendations are needed. Objective - Vital Signs Vital signs: Vital Signs Temp 98.0 F 12/07/21 08:00 Pulse 74 12/07/21 08:00 Resp 18 12/07/21 08:00 BP 140/77 12/07/21 08:00 Pulse Ox 94 L 12/07/21 08:00 Intake & Output 12/06/21 12/07/21 12/07/21 18:59 06:59 18:59 Intake Total 1163.688 Balance 1163.688 Intake: Intake, IV Titration 83.688 Amount Heparin Sod,Pork in 0.45% 83.688 NaCl 25,000 unit In 0.45 % NaCl 1 250ml.bag @ 18 UNITS/KG/HR 14.696 mls/hr IV .Q17H1M [facility] Rx#: [id number] Oral 1080 Other: Voiding Method Toilet # Voids 3 2 - Labs CBC & Chem 7: 12/06/21 06:44 12/06/21 06:44
--- NOTE | 2021-12-08 13:54 | P.DS ---
Providers Date of admission: 12/05/21 16:26 Attending physician: Napoleon Buchanan MD Consults: 12/05/21 16:27 Consult Physician Urgent Consulting Provider: [facility] Consult Reason/Comments: acute chest pain, acute b/l pe, known dvt on anticoagulation Do you want consulting provider notified?: Yes 12/05/21 16:37 Consult Physician Urgent Consulting Provider: Fausto Terry Consult Reason/Comments: pe on anticoagulation Do you want consulting provider notified?: Yes Primary care physician: Lashell Price Hospital Course: Final Diagnosis -Pulmonary embolism: with recent DVT, echo shows no evidence of pulmonary hypertension, she will follow up in the office with hematology, continue current eliquis dosing 10 mg po bid for 2 more days than transition to 5 mg po daily -Hyperlipidemia -Recent DVT about less than a week ago. -Gastric esophageal reflux disease for which patient is on Prilosec -Asthma without any acute exacerbation -Hyperlipidemia -Hypertension -History of mitral valve prolapse -CVA TIA in the past -Full Code Discharge Disposition Patient is stable for discharge home. Will follow up with primary care and hematology in the office. Hospital Course This is a pleasant 71-year-old female who presents to the emergency room with complaints of pleuritic chest pain and was recommended to come to the emergency room by her primary care provider. Patient was recently admitted to [facility] and was found to have an acute DVT in her right lower extremity. She was initiated on eliquis 10 mg twice a day for 7 days with transition to eliquis 5 mg twice a day. Patient underwent a chest CTA this admission which showed a small left-sided pleural effusion, basilar atelectasis. Also with mild bilateral pulmonary embolism. She was continued on eliquis. Echocardiogram completed shows an EF of 55-60% with trace mitral regurgitation, mild aortic regurgitation, trace tricuspid regurgitation and no pericardial effusion. She was seen in consult by cardiology and oncology services. Past medical history significant for asthma, chest pain and angina, CVA TIA, GERD, hyperlipidemia, hypertension, mitral valve prolapse, osteoarthritis, history of heart murmur, IBS, heart catheterization, multiple surgeries, former smoker quit in 2018. Patient is vaccinated for Covid with Moderna 2 with a booster shot received in July 2021. There is no family history of any clotting disorders and patient has never had a DVT or PE in the past. EKG shows normal sinus rhythm heart rate 86, QT interval [address] or T- wave abnormalities. Labs on admission show white count 14.8, sodium 135, glucose 106, BNP 362, troponin levels negative, liver enzymes negative, urinalysis negative. 12/07/2021 Patient evaluated today resting bed. No acute events overnight. Patient was unable to sleep well. She is hoping to be discharged home today. She was cleared by cardiology and hematology services to follow-up in the office. She denies any chest pain, chest pressure, cough or shortness of breath. No abdominal pain, nausea or vomiting. Most recent labs show a white count of 14.23, Electrolyte panel unremarkable, random elevated blood glucose at 120 recommend follow-up in the office for this. Current vitals show patient is afebrile, heart rate 74, blood pressure 121/88, and 95% on room air. She is ambulating without difficulty with no shortness of breath. Lungs are clear, S1- S2 auscultated, abdomen soft nontender, focal neurological exam is negative. Patient will be discharged home with appropriate follow-up appointments. Please see medication reconciliation for a list of current medications. Thank you for allowing us to participate in the care of this patient. Patient Condition at Discharge: Stable Plan - Discharge Summary Discharge Rx Participant: No New Discharge Prescriptions: Continue Omeprazole [PriLOSEC] 20 mg PO BID Atorvastatin [Lipitor] 20 mg PO HS diphenhydrAMINE HCL [Benadryl] 75 mg PO HS Nitroglycerin Sl Tabs [Nitrostat] 0.4 mg SUBLINGUAL Q5M PRN #20 tab PRN Reason: Chest Pain Losartan Potassium 100 mg PO DAILY Hydrocortisone Cream [Hydrocortisone 2.5% Cream] 1 applic TOPICAL DAILY PRN PRN Reason: Rash amLODIPine [Norvasc] 5 mg PO HS atenoloL [Tenormin] 50 mg PO BID Isosorbide Mononitrate ER [Imdur] 60 mg PO DAILY Ketoconazole 2% Cream [Nizoral 2%] 1 applic TOPICAL DAILY PRN PRN Reason: Rash Apixaban [Eliquis Starter Pack (for VTE)] 5 - 10 mg PO DIRECTED #0 Discharge Medication List Atorvastatin [Lipitor] 20 mg PO HS 05/17/14 [History] Omeprazole [PriLOSEC] 20 mg PO BID 05/17/14 [History] diphenhydrAMINE HCL [Benadryl] 75 mg PO HS 06/09/19 [History] Nitroglycerin Sl Tabs [Nitrostat] 0.4 mg SUBLINGUAL Q5M PRN #20 tab 06/10/19 [Rx] Hydrocortisone Cream [Hydrocortisone 2.5% Cream] 1 applic TOPICAL DAILY PRN 12/05/21 [History] Isosorbide Mononitrate ER [Imdur] 60 mg PO DAILY 12/05/21 [History] Ketoconazole 2% Cream [Nizoral 2%] 1 applic TOPICAL DAILY PRN 12/05/21 [History] Losartan Potassium 100 mg PO DAILY 12/05/21 [History] amLODIPine [Norvasc] 5 mg PO HS 12/05/21 [History] atenoloL [Tenormin] 50 mg PO BID 12/05/21 [History] Apixaban [Eliquis Starter Pack (for VTE)] 5 - 10 mg PO DIRECTED #0 12/07/21 [Rx] Follow up Appointment(s)/Referral(s): Lashell Price MD [Primary Care Provider] - 12/09/21 Fausto Terry MD [STAFF PHYSICIAN] - 12/10/21 Patient Instructions/Handouts: Pulmonary Embolism (DC) Discharge Disposition: HOME SELF-CARE
== END 2021-12-07 14:32 | disposition home or self-care (01) | DRG 176 ==
LOC: EC 11:59 → 4SSUR 16:26
PROVIDERS: ADMIT Internal Medicine; ATTEND Internal Medicine
DX: I26.99 Other pulmonary embolism without acute cor pulmonale (principal); I82.401 Acute embolism and thrombosis of unspecified deep veins of right lower extremity; E78.5 Hyperlipidemia, unspecified; I10 Essential (primary) hypertension; I08.0 Rheumatic disorders of both mitral and aortic valves; J45.909 Unspecified asthma, uncomplicated; K21.9 Gastro-esophageal reflux disease without esophagitis; K58.9 Irritable bowel syndrome, unspecified; M19.90 Unspecified osteoarthritis, unspecified site; Z79.01 Long term (current) use of anticoagulants; Z79.899 Other long term (current) drug therapy; Z86.73 Personal history of transient ischemic attack (TIA), and cerebral infarction without residual deficits; Z87.891 Personal history of nicotine dependence; Z90.710 Acquired absence of both cervix and uterus; Z90.49 Acquired absence of other specified parts of digestive tract; Z98.890 Other specified postprocedural states; Z72.3 Lack of physical exercise; Z98.42 Cataract extraction status, left eye; Z98.41 Cataract extraction status, right eye; Z98.1 Arthrodesis status; Z88.8 Allergy status to other drugs, medicaments and biological substances; Z91.041 Radiographic dye allergy status
CPT/HCPCS: 36415; 71275; 80048; 80053; 81003; 83605; 83880; 84484; 85025; 85610; 85730; 93005; 93306; 96374; 96375; 99285

== ENCOUNTER → 2022-02-03 | Outpatient (CLI) | payer MEDICARE ==
--- NOTE | 2022-02-03 09:42 | US ---
EXAMINATION TYPE: US venous doppler duplex LE LT DATE OF EXAM: 02/03/2022 9:25 AM COMPARISON: NONE CLINICAL HISTORY: M79.662 PAIN IN LEFT LOWER LEG. Pain and edema HX of DVT PE on blood thinners. SIDE PERFORMED: Left TECHNIQUE: The lower extremity deep venous system is examined utilizing real time linear array sonog roxie with graded compression, doppler sonography and color-flow sonography. VESSELS IMAGED: Common Femoral Vein Deep Femoral Vein Greater Saphenous Vein * Femoral Vein Popliteal Vein Small Saphenous Vein * Proximal Calf Veins (* superficial vessels) Left Leg: Negative for DVT Grayscale, color doppler, spectral doppler imaging performed of the deep veins of the left lower extr emity. There is normal flow, compressibility, vascular waveforms. IMPRESSION: No ultrasound evidence for acute DVT in the left lower extremity.
== END | disposition home or self-care (01) ==
LOC: RADUSWWP 08:43
PROVIDERS: ATTEND Internal Medicine Hematology & Oncology
DX: M79.662 Pain in left lower leg (principal); R22.42 Localized swelling, mass and lump, left lower limb

== ENCOUNTER → 2022-10-02 | Outpatient (CLI) | payer MEDICARE ==
--- NOTE | 2022-10-02 13:28 | MM ---
Reason for Exam: Clinical finding. Last screening mammogram was performed 12 month(s) ago. Indicated Problems: Pain of the left side for 1 Month(s). Patient History: Menarche at age 9. First Full-Term at age 17. Hysterectomy at age 26. Postmenopausal. Patient has history of breast feeding. Estrogen for 11 years from age 40 until age 51. Core Biopsy on the Left side. Cyst Aspiration on the Left side. Cyst Aspiration on the Left side. Cyst Aspiration on the Left side. Cyst Aspiration on the Left side. Excisional Biopsy on the Left side. Excisional Biopsy on the Left side. 03/10/2001, Benign Ultrasound-Guided Core Biopsy on the left side. Risk Values: Roya 5 year model risk: 2.1%. NCI Lifetime model risk: 4.8%. Tissue Density: The breast tissue is heterogeneously dense. This may lower the sensitivity of mammography. Findings: Analyzed By CAD. No new suspicious mass or worrisome cluster microcalcifications within either breast. Benign-appearing round calcifications are demonstrated within both breasts. Chronic nodularity within both breasts. No significant change from prior examination. Overall Assessment: Benign, BI-RAD 2 Management: Screening Mammogram of both breasts in 1 year. A clinical breast exam by your physician is recommended on an annual basis and results should be correlated with mammographic findings. This exam should not preclude additional follow-up of suspicious palpable abnormalities. Results were given to the patient verbally at the time of exam. Electronically signed and approved by: Ankur Alvarado D.O.
== END | disposition home or self-care (01) ==
LOC: RADMAMWWP 12:59
PROVIDERS: ATTEND Family Medicine
DX: N64.4 Mastodynia (principal); Z78.0 Asymptomatic menopausal state; Z98.890 Other specified postprocedural states
CPT/HCPCS: 77066; G0279; 77062